=== PATIENT | female | born 1960 | race Caucasian/White ===

== ENCOUNTER 2021-11-01 10:25 | Emergency (ER) | payer BC, SELFPAY ==
--- NOTE | ~2021-11-01 | XR_ITS ---
EXAMINATION: XR HIP, RIGHT CLINICAL INFORMATION: Right hip pain status post fall. COMPARISON: None TECHNIQUE: Two views of the right hip. FINDINGS: There is no acute fracture or dislocation. Minimal right hip degenerative joint changes are seen superiorly. The bony pelvis is intact. The soft tissues are unremarkable. XR/XR hip RT w PEL1V IMPRESSION: Minimal right hip degenerative joint changes without acute fracture.
--- NOTE | ~2021-11-01 | XR_ITS ---
EXAMINATION: XR CHEST CLINICAL INFORMATION: Week old left shoulder surgery. COMPARISON: None TECHNIQUE: 2 views of the chest were obtained. FINDINGS: No significant abnormality is noted involving the heart, lungs, mediastinum, bony thorax or soft tissues. XR/XR chest 2V IMPRESSION: No acute cardiopulmonary process.
--- NOTE | ~2021-11-01 | CT_ITS ---
EXAMINATION: CT HEAD WITHOUT CONTRAST CLINICAL INFORMATION: Multiple falls over the past 3 days. The labrum. COMPARISON: None TECHNIQUE: Contiguous axial imaging was performed from the skull base to vertex without intravenous administration of contrast. Coronal and sagittal reformatted images were obtained. This CT examination was performed using dose optimization techniques as appropriate, variously including the following: *Automated exposure control *Adjustment of mA and/or kV according to patient size (this includes techniques or standardized protocols for targeted exams where dose is matched to indication/reason for exam; i.e. extremities or head) *Use of iterative reconstruction technique DLP: 612 mGy-cm FINDINGS: There is no evidence of acute intracranial hemorrhage or territorial infarction. No abnormal mass effect or midline shift is seen. Caro to white matter differentiation is well preserved. No extra-axial fluid collections are identified. The ventricles are normal in size. There is no abnormal attenuation within the brain parenchyma. The osseous structures and soft tissues are normal. The mastoid air cells and visualized portions of the paranasal sinuses are well aerated. Mild anterior nasal septal deviation, apex of the right is seen. CT/CT head/brain wo con IMPRESSION: No acute intracranial pathology.
[2021-11-01 10:35] VITALS: BP 165/46; PULSE 81; RESP 20; TEMP 37; O2SAT 97; BMI 34.3
[2021-11-01 14:43] VITALS: BP 152/57; PULSE 76; RESP 16; TEMP 36.8; O2SAT 95
--- NOTE | 2021-11-01 14:47 | ED_ITS ---
HPI - General Adult General Chief complaint: General Medical Stated complaint: Fall t-1/ R side pain Time Seen by Provider: 11/01/21 14:46 Source: patient and family () Mode of arrival: ambulatory Limitations: no limitations History of Present Illness HPI narrative: Patient is a 61 year old female presenting to the emergency department today with right hip and and right rib pain. Patient states that she fell yesterday and landed on her right hip and right ribs. Patient denies hitting her head with the incident. Patient's states that the patient is falling more frequently at home because she is drinking an excessive amount of alcohol. Patient's said that they have attempted to talk to the patient about her drinking problem but haven't made any progress. Patient denies any dizziness, lightheadedness, abdominal pain, nausea, vomiting, fever, chills, blurry vision, double vision, loss of vision, chest pain, difficulty breathing, shortness of breath, back pain, night sweats, pain with urination, increased urinary frequency, increased urinary urgency, blood in her urine or stool, syncope or a near syncopal episode, recent trauma or falls, bowel incontinence, bladder in continence, bowel retention, bladder retention, or any other complaints at this time. Patient states that a week and a half ago she fell and broke her left humerus and is currently in a sling, with a follow up orthopedic appointment scheduled. Onset (ago): day(s) Radiation: non-radiation Severity: mild Severity scale (1-10): 3 Quality: dull Pain Consistency: constant Relieving factors: none Exacerbating factors: none Associated symptoms: denies other symptoms Treatments prior to arrival: none Related Data Allergies Allergy/AdvReac Type Severity Reaction Status Date / Time Sulfa (Sulfonamide Allergy Rash Verified 11/01/21 10:39 Antibiotics) Review of Systems Constitutional: Constitutional: Reports no additional constitutional complaints, Denies chills, Denies fever(s) and Denies night sweats Eyes: Eyes: Reports no additional eye complaints, Denies blurry vision, Denies change in vision, Denies diplopia, Denies eye discharge, Denies loss of vision and Denies eye pain ENT: Denies dizziness Cardiovascular: Cardiovascular: Reports no additional cardiovascular complaints, Denies chest pain, Denies lightheadedness, Denies Loss of Consciou sness and Denies dyspnea Respiratory: Respiratory: Reports no additional respiratory complaints and Denies dyspnea Gastrointestinal: Gastrointestinal: Reports no additional gastrointestinal co mplaints, Denies abdominal pain, Denies melena, Denies hematochezia, Denies change in bowel habits and Denies change in stool character Genitourinary: Genitourinary: Denies hematuria, Denies urinary frequency, Denies dysuria, Denies urinary incontinence, Denies urinary hesitancy and Denies urinary urgency Musculoskeletal: Musculoskeletal: Reports no additional musculoskeletal complaints, Denies numbness and Denies tingling Comments: right hip pain, right rib cage pain, left humerus pain Neurologic: Denies dizziness, Denies loss of vision, Denies numbness and Denies tingling Psychiatric: Psychiatric: Reports no additional psychiatric complaints Endocrine: Endocrine: Reports no additional endocrine complaints Hematologic/Lymphatic: Hematologic/Lymphatic: Reports no additional hematologic/lymphatic complaints Allergic/Immunologic: Allergic/Immunologic: Reports no additional allergic/imm unologic complaints PMFSH Past Medical History Attestation statement: The following information was validated with the patient. Source: old records reviewed Social History Social History Alcohol intake: current Alcohol intake frequency: 0-2 drinks per day Use of substances other than those prescribed or required for medical reasons: No Advance Directives: No Physical Exam ED Vital Signs: Vital Signs - 24 hr 11/01/21 10:35 11/01/21 14:43 11/01/21 15:31 Temperature 98.6 F 98.2 F 98.7 F Pulse Rate 81 76 75 Respiratory Rate 20 16 16 Blood Pressure 165/46 H 152/57 H 149/70 H Pulse Oximetry 97 95 98 BMI result Body Mass Index 34.3 Const General: cooperative, no acute distress, alert and awake Nutritional Appearance: well nourished Orientation/consciousness: patient oriented x3 Limitations: no limitations HENMT Head: Yes normal to inspection and Yes atraumatic Ears: hearing grossly normal bilaterally and external ears normal General nose exam: Normal external nose present, no nasal discharge noted and no epistaxis Face and sinus: Yes normal facial exam, No abrasion and No laceration Mouth: Normal oral and palatal mucosa present, no drooling and no muffled voice Eyes General: appearance normal, both eyes and all related structures Periorbital: periorbital findings normal Eyelids: Yes eyelids normal Conjunctivae: conjunctivae normal Pupils: Equal, round and reactive pupils present EOM: EOMs intact bilaterally Neck Neck: Yes normal visual inspection, Yes full ROM and Yes no lymphadenopathy Chest Chest palpation & inspection: normal inspection of the chest Resp Effort & Inspection: normal respiratory effort and able to speak in complete sentences Auscultation: clear to auscultation bilaterally Cardio Rate: regular rate Rhythm: regular rhythm GI Inspection: Yes normal to inspection Skin Other: mild bruising to the right hip and left upper arm Neuro General: patient oriented x3 and moves all extremities Cranial nerves: Yes Equal, round and reactive pupils present Cognition (Neuro): normal cognition Motor exam (neuro): 5/5 motor strength present throughout Sensory Exam: Normal double simultaneous stimulation for sensation Coordination: [id number] test normal Extrem General: Yes normal to inspection, Yes full ROM and Yes capillary refill normal Psych Appearance: grossly normal Mental Status: mental status grossly normal Affect: normal affect Attitude: cooperative Thought process: Normal thought process present Thought content: Normal thought content present Insight: Good insight present (Psych) Medical Decision Making [facility] Narrative Medical decision making narrative: Patient is a 61 year old female presenting to the emergency department today after a fall. Patient's physical exam showed minimal bruising to the right hip and left humerus. Patient's left arm is in a sling. Patient's blood work was unremarkable. Patient's right hip and chest x-ray showed no acute process. Courtney osuna's head CT showed no acute process. I explained my physical exam findings as well as all test results to the patient and the patient's . I answered all questions asked by the patient and the patient's . Patient received IV toradol which she stated helped her pain significantly. I stressed the importance of the patient taking her medication as prescribed. I stressed the importance of the patient following up with her primary care provider and orthopedist. I stressed the importance of the patient returning to the emergency department immediately if her symptoms were to worsen or if she were to develop any dizziness, shortness of breath, difficulty breathing, chest pain, blurry vision, loss of vision, nausea, vomiting, abdominal pain, fever, chills, back pain, or any other complaints. Patient and the patient's verbalized agreement and understanding with this treatment plan and discharge. Patient was given alcohol abuse resources. Differential Diagnosis Differential Diagnosis: alcohol abuse, fall, hip pain, broken humerus Medical Records Medical records reviewed: Yes I reviewed the patient's medical records. Lab Data Lab results reviewed: Yes I reviewed the patient's lab results. Result diagrams: 11/01/21 15:19 11/01/21 15:19 Labs: Lab Results 11/01/21 11/01/21 11/01/21 Range/Units 15:18 15:18 15:19 WBC 8.3 (4.8-10.8) X10*3/uL RBC 3.31 L (4.20-5.50) X10*6/uL Hgb 8.4 L (12.0-16.0) g/dl Hct 26.7 L (37.0-47.0) % MCV 80.7 (80.0-98.0) fL MCH 25.4 L (27.0-33.0) pg MCHC 31.5 (31.0-35.0) g/dl RDW 17.6 H (11.0-16.0) % Plt Count 134 L (160-400) X10*3/uL MPV 9.9 (9.4-12.3) fL Immature Gran % (Auto) 0.4 (0.0-0.4) % Neut % (Auto) 68.8 (45-73) % Lymph % (Auto) 22.7 (20-40) % Hooker % (Auto) 7.7 (2-11) % Eos % (Auto) 0.0 (0-4) % Baso % (Auto) 0.4 (0-2) % Lymph # (Auto) 1.9 (1.2-4.9) X10*3/uL Hooker # (Auto) 0.6 (0.1-1.2) X10*3/uL Eos # (Auto) 0.0 (0.0-0.4) X10*3/uL Baso # (Auto) 0.0 (0.0-0.2) X10*3/uL Abs Immat Gran (auto) 0.03 (0.00-0.03) X10*3/uL Absolute Neuts (auto) 5.8 (2.0-8.3) x10*3/uL Absolute Nucleated RBC 0.000 (0.0-0.012) X10*3/uL Nucleated RBC % (auto) 0.0 (0.0-0.2) /100WBC VBG pH (7.32-7.43) VBG pCO2 mmHg VBG pO2 mmHg VBG HCO3 (22-26) mmol/L VBG O2 Saturation % VBG Base Excess mmol/L Sodium (135-145) mmol/L Potassium (3.3-5.1) mmol/L Chloride (96-108) mmol/L Carbon Dioxide (22-29) mmol/L Anion Gap (12-20) BUN (9-16) mg/dL Creatinine (0.5-1.4) mg/dL Estim Creat Clear Calc Estimated GFR Random Glucose (60-115) mg/dL Calcium (8.4-10.2) mg/dL Total Bilirubin (0.0-1.0) mg/dL AST (5-31) U/L ALT (0-31) U/L Alkaline Phosphatase (39-117) U/L Ammonia 36 (13-55) umol/L Total Protein (6.5-8.0) g/dL Albumin (3.5-5.0) g/dL TSH (0.32-4.0) uIU/mL Free T4 (0.71-1.85) ng/dL Urine Opiates Screen (Not Detect) Urine Fentanyl Screen (Not Detect) Ur Barbiturates Screen (Not Detect) Ur Phencyclidine Scrn (Not Detect) Ur Amphetamines Screen (Not Detect) U Benzodiazepines Scrn (Not Detect) Urine Cocaine Screen (Not Detect) U Marijuana (THC) Screen (Not Detect) Ethyl Alcohol < 10 mg/dL 11/01/21 11/01/21 11/01/21 Range/Units 15:19 15:19 15:27 WBC (4.8-10.8) X10*3/uL RBC (4.20-5.50) X10*6/uL Hgb (12.0-16.0) g/dl Hct (37.0-47.0) % MCV (80.0-98.0) fL MCH (27.0-33.0) pg MCHC (31.0-35.0) g/dl RDW (11.0-16.0) % Plt Count (160-400) X10*3/uL MPV (9.4-12.3) fL Immature Gran % (Auto) (0.0-0.4) % Neut % (Auto) (45-73) % Lymph % (Auto) (20-40) % Hooker % (Auto) (2-11) % Eos % (Auto) (0-4) % Baso % (Auto) (0-2) % Lymph # (Auto) (1.2-4.9) X10*3/uL Hooker # (Auto) (0.1-1.2) X10*3/uL Eos # (Auto) (0.0-0.4) X10*3/uL Baso # (Auto) (0.0-0.2) X10*3/uL Abs Immat Gran (auto) (0.00-0.03) X10*3/uL Absolute Neuts (auto) (2.0-8.3) x10*3/uL Absolute Nucleated RBC (0.0-0.012) X10*3/uL Nucleated RBC % (auto) (0.0-0.2) /100WBC VBG pH 7.46 H (7.32-7.43) VBG pCO2 34 mmHg VBG pO2 87 mmHg VBG HCO3 25 (22-26) mmol/L VBG O2 Saturation 96.0 % VBG Base Excess 1.7 mmol/L Sodium 139 (135-145) mmol/L Potassium 4.2 (3.3-5.1) mmol/L Chloride 104 (96-108) mmol/L Carbon Dioxide 24 (22-29) mmol/L Anion Gap 15 (12-20) BUN 14 (9-16) mg/dL Creatinine 0.73 (0.5-1.4) mg/dL Estim Creat Clear Calc 89.3 Estimated GFR > 60 Random Glucose 177 H (60-115) mg/dL Calcium 9.1 (8.4-10.2) mg/dL Total Bilirubin 1.1 H (0.0-1.0) mg/dL AST 76 H (5-31) U/L ALT 39 H (0-31) U/L Alkaline Phosphatase 126 H (39-117) U/L Ammonia (13-55) umol/L Total Protein 7.3 (6.5-8.0) g/dL Albumin 3.8 (3.5-5.0) g/dL TSH 8.67 H (0.32-4.0) uIU/mL Free T4 1.05 (0.71-1.85) ng/dL Urine Opiates Screen (Not Detect) Urine Fentanyl Screen (Not Detect) Ur Barbiturates Screen (Not Detect) Ur Phencyclidine Scrn (Not Detect) Ur Amphetamines Screen (Not Detect) U Benzodiazepines Scrn (Not Detect) Urine Cocaine Screen (Not Detect) U Marijuana (THC) Screen (Not Detect) Ethyl Alcohol mg/dL 11/01/21 Range/Units 16:54 WBC (4.8-10.8) X10*3/uL RBC (4.20-5.50) X10*6/uL Hgb (12.0-16.0) g/dl Hct (37.0-47.0) % MCV (80.0-98.0) fL MCH (27.0-33.0) pg MCHC (31.0-35.0) g/dl RDW (11.0-16.0) % Plt Count (160-400) X10*3/uL MPV (9.4-12.3) fL Immature Gran % (Auto) (0.0-0.4) % Neut % (Auto) (45-73) % Lymph % (Auto) (20-40) % Hooker % (Auto) (2-11) % Eos % (Auto) (0-4) % Baso % (Auto) (0-2) % Lymph # (Auto) (1.2-4.9) X10*3/uL Hooker # (Auto) (0.1-1.2) X10*3/uL Eos # (Auto) (0.0-0.4) X10*3/uL Baso # (Auto) (0.0-0.2) X10*3/uL Abs Immat Gran (auto) (0.00-0.03) X10*3/uL Absolute Neuts (auto) (2.0-8.3) x10*3/uL Absolute Nucleated RBC (0.0-0.012) X10*3/uL Nucleated RBC % (auto) (0.0-0.2) /100WBC VBG pH (7.32-7.43) VBG pCO2 mmHg VBG pO2 mmHg VBG HCO3 (22-26) mmol/L VBG O2 Saturation % VBG Base Excess mmol/L Sodium (135-145) mmol/L Potassium (3.3-5.1) mmol/L Chloride (96-108) mmol/L Carbon Dioxide (22-29) mmol/L Anion Gap (12-20) BUN (9-16) mg/dL Creatinine (0.5-1.4) mg/dL Estim Creat Clear Calc Estimated GFR Random Glucose (60-115) mg/dL Calcium (8.4-10.2) mg/dL Total Bilirubin (0.0-1.0) mg/dL AST (5-31) U/L ALT (0-31) U/L Alkaline Phosphatase (39-117) U/L Ammonia (13-55) umol/L Total Protein (6.5-8.0) g/dL Albumin (3.5-5.0) g/dL TSH (0.32-4.0) uIU/mL Free T4 (0.71-1.85) ng/dL Urine Opiates Screen Not Detected (Not Detect) Urine Fentanyl Screen Not Detected (Not Detect) Ur Barbiturates Screen Not Detected (Not Detect) Ur Phencyclidine Scrn Not Detected (Not Detect) Ur Amphetamines Screen Not Detected (Not Detect) U Benzodiazepines Scrn Not Detected (Not Detect) Urine Cocaine Screen Not Detected (Not Detect) U Marijuana (THC) Screen POSITIVE H (Not Detect) Ethyl Alcohol mg/dL Imaging Data Right hip pain: Attestation: I personally reviewed and interpreted this imaging study as follows: My impression: No acute process. Radiologist's impression: EXAMINATION: XR HIP, RIGHT CLINICAL INFORMATION: Right hip pain status post fall. COMPARISON: None TECHNIQUE: Two views of the right hip. FINDINGS: There is no acute fracture or dislocation. Minimal right hip degenerative joint changes are seen superiorly. The bony pelvis is intact. The soft tissues are unremarkable.? XR/XR hip RT w PEL1V IMPRESSION: Minimal right hip degenerative joint changes without acute fracture. Dictated By: Saad Cottrell MD Signed By: Electronically signed by Saad Cottrell MD 11/01/21 6871 Chest x-ray: Attestation: I personally reviewed and interpreted this imaging study as follows: My impression: No acute process. Radiologist's impression: EXAMINATION: XR CHEST CLINICAL INFORMATION: Week old left shoulder surgery. COMPARISON: None TECHNIQUE: 2 views of the chest were obtained. FINDINGS: No significant abnormality is noted involving the heart, lungs, mediastinum, bony thorax or soft tissues. XR/XR chest 2V IMPRESSION: No acute cardiopulmonary process. Dictated By: Saad Cottrell MD Signed By: Electronically signed by Saad Cottrell MD 11/01/[address] scan - head: Attestation: I personally reviewed and interpreted this imaging study as follows: My impression: No acute process. Radiologist's impression: EXAMINATION: CT HEAD WITHOUT CONTRAST CLINICAL INFORMATION: Multiple falls over the past 3 days. The labrum. COMPARISON: None TECHNIQUE: Contiguous axial imaging was performed from the skull base to vertex without intravenous administration of contrast. Coronal and sagittal reformatted images were obtained. This CT examination was performed using dose optimization techniques as appropriate, variously including the following: *Automated exposure control *Adjustment of mA and/or kV according to patient size (this includes techniques or standardized protocols for targeted exams where dose is matched to indication/reason for exam; i.e. extremities or head) *Use of iterative reconstruction technique DLP: 612 mGy-cm FINDINGS: There is no evidence of acute intracranial hemorrhage or territorial infarction. No abnormal mass effect or midline shift is seen. Caro to white matter differentiation is well preserved. No extra-axial fluid collections are identified. The ventricles are normal in size. There is no abnormal attenuation within the brain parenchyma. The osseous structures and soft tissues are normal. The mastoid air cells and visualized portions of the paranasal sinuses are well aerated. Mild anterior nasal septal deviation, apex of the right is seen. ? CT/CT head/brain wo con IMPRESSION: No acute intracranial pathology. Dictated By: Saad Cottrell MD Signed By: Electronically signed by Saad Cottrell MD 11/01/21 6687 Discharge Plan Discharge Clinical Impression: Fall, Fracture, humerus, Alcohol abuse Patient Disposition: Home, Self-Care Instructions: Abuse of Alcohol (ED), Fall Prevention (ED) Additional Instructions: Follow up with your primary care provider and orthopedist. Return to the emergency department immediately if your symptoms worsen or if you develop any dizziness, shortness of breath, difficulty breathing, chest pain, blurry vision, loss of vision, nausea, vomiting, abdominal pain, fever, chills, back pain, or any other complaints. Print Language: Iraqi
[2021-11-01 15:29] LABS: MANUAL DIFF FLAG NO
[2021-11-01 15:31] VITALS: BP 149/70; PULSE 75; RESP 16; TEMP 37.1; O2SAT 98
[2021-11-01 15:32] LABS: VBG Base Excess 1.7 mmol/L; VBG HCO3 25 mmol/L (22-26); VBG pCO2 34 mmHg; VBG pH 7.46 (7.32-7.43); VBG pO2 87 mmHg
[2021-11-01 15:34] LABS: Basophils Percent Auto 0.4 % (0-2); Hematocrit 26.7 % (37.0-47.0); Hemoglobin 8.4 g/dl (12.0-16.0); Imm Gran Abs Auto 0.03 X10*3/uL (0.00-0.03); Imm Gran Pct Auto 0.4 % (0.0-0.4); Lymphocytes Absolute Auto 1.9 X10*3/uL (1.2-4.9); Lymphocytes Percent Auto 22.7 % (20-40); Mean Corpuscular HGB Conc 31.5 g/dl (31.0-35.0); Mean Corpuscular Hemoglobin 25.4 pg (27.0-33.0); Mean Corpuscular Volume 80.7 fL (80.0-98.0); Mean Platelet Volume 9.9 fL (9.4-12.3); Monocytes Absolute Auto 0.6 X10*3/uL (0.1-1.2); Monocytes Percent Auto 7.7 % (2-11); Neutrophils Absolute Auto 5.8 x10*3/uL (2.0-8.3); Neutrophils Percent Auto 68.8 % (45-73); Platelet Count 134 X10*3/uL (160-400); Red Blood Count 3.31 X10*6/uL (4.20-5.50); Red Cell Distribution Width 17.6 % (11.0-16.0); White Blood Count 8.3 X10*3/uL (4.8-10.8)
[2021-11-01 15:39] LABS: Venous Blood Gas Refer to POC result
[2021-11-01 15:42] LABS: Ammonia 36 umol/L (13-55)
[2021-11-01 15:44] LABS: Ethanol < 10 mg/dL
[2021-11-01 15:48] LABS: Alanine Aminotransferase 39 U/L (0-31); Albumin Level 3.8 g/dL (3.5-5.0); Alkaline Phosphatase 126 U/L (39-117); Anion Gap 15 (12-20); Aspartate Amino Transferase 76 U/L (5-31); Bilirubin Total 1.1 mg/dL (0.0-1.0); Blood Urea Nitrogen 14 mg/dL (9-16); Calcium 9.1 mg/dL (8.4-10.2); Carbon Dioxide 24 mmol/L (22-29); Chloride 104 mmol/L (96-108); Creatinine Clr Calc Pharmacy 89.3; Estimated Glomerular Filt Rate > 60; Glucose Random 177 mg/dL (60-115); Potassium 4.2 mmol/L (3.3-5.1); Sodium 139 mmol/L (135-145); Total Protein 7.3 g/dL (6.5-8.0)
[2021-11-01] MEDS: Ketorolac Tromethamine 30 MG/ML VIAL IVPUSH (16:02)
[2021-11-01 16:28] LABS: TSH reflex Free T4 8.67 uIU/mL (0.32-4.0)
[2021-11-01 17:09] LABS: Free T4 (Free Thyroxine) 1.05 ng/dL (0.71-1.85)
[2021-11-01 17:11] LABS: Appearance Urine CLEAR; Color Urine YELLOW; Glucose Urine UA >=1000 MG/DL (NEG); Leukocyte Esterase Urine 1+ (NEG); Nitrite Urine POS (NEG); UACC Culture Trigger YES; Urine Blood NEG (NEG); Urine Ketones NEG (NEG); Urine Protein NEG (NEG-TRACE)
[2021-11-01 17:15] LABS: Amphetamine Screen Urine Not Detected (Not Detect); Barbiturates, Urine Not Detected (Not Detect); Benzodiazepines Screen Urine Not Detected (Not Detect); Cannabinoid Screen Urine POSITIVE (Not Detect); Cocaine Screen Urine Not Detected (Not Detect); Fentanyl, urine Not Detected (Not Detect); Opiate Screen Urine Not Detected (Not Detect); Phencyclidine Screen Urine Not Detected (Not Detect)
--- NOTE | 2021-11-01 17:15 | MHC.RECOVSUP ---
Recovery Support note: Patient is a 61 year old Chadian speaking female who presented to [facility] ED due to multiple falls. This contract technical writer met with patient and her at ED provider request to discuss alcohol use and recovery supports. Patient acknowledges that alcohol contributed to her falls and that her alcohol use is problematic to her health. Patient reports drinking at least two drinks a day and reports she has consumed about 3 pints of gin over the last 10 days or so. Patient reports no withdrawal symptoms and reports she doesn't get withdrawal symptoms. Education on withdrawal symptoms provided. This contract technical writer discussed with patient and her recovery supports including AA, al-anon, outpatient therapy, recovery coaching, medications for alcohol use disorder and IOP. Information and resources provided regarding these. Patient also provided with contact information for the Recovery Team in the event that there are any questions after discharge.
[2021-11-01 17:38] LABS: Bacteria Urine 3+ /LPF; RBC Urine 0 /HPF (0); Squamous Epithelial Cell Urine 1+ /LPF
== END 2021-11-01 18:18 | disposition home or self-care (01) ==
PROVIDERS: Physician Assistant Medical; Emergency Provider Internal Medicine
DX: S42.302A Unspecified fracture of shaft of humerus, left arm, initial encounter for closed fracture (principal); F10.10 Alcohol abuse, uncomplicated; Y90.0 Blood alcohol level of less than 20 mg/100 ml; M25.551 Pain in right hip; R07.81 Pleurodynia; R29.6 Repeated falls; W19.XXXA Unspecified fall, initial encounter; Y93.9 Activity, unspecified; Y92.9 Unspecified place or not applicable; Y99.9 Unspecified external cause status
CPT/HCPCS: 36415; 70450; 71046; 73502; 80053; 80307; 81001; 81003; 82077; 82140; 82803; 84439; 84443; 85025; 87086; 87088; 87186; 96374; 99284; J1885

== ENCOUNTER 2021-11-15 07:07 | Outpatient (REF) | payer BC, SELFPAY ==
--- NOTE | ~2021-11-15 | XR_ITS ---
EXAMINATION: XR SHOULDER, LEFT CLINICAL INFORMATION: Pain. COMPARISON: None TECHNIQUE: AP external rotation, Grashey, scapular Y, and axillary views of the left shoulder. FINDINGS: There is a solitary screw traversing the left humeral head with a vertical comminuted fracture left greater tuberosity with mild displacement. Glenohumeral joint space is normal. There is mild loss of left AC joint space. The soft tissues are normal. No gross bony abnormality seen.. XR/XR shoulder LT min 2V IMPRESSION: There is a comminuted left greater tuberosity fracture with mild displacement. There is a solitary screw traversing the left lateral humeral head. The soft tissues are normal.
== END 2021-11-15 07:08 | disposition home or self-care (01) ==
LOC: HO.HOSX 07:07
PROVIDERS: Visit Provider Physician Assistant
DX: M25.512 Pain in left shoulder (principal); S42.252A Displaced fracture of greater tuberosity of left humerus, initial encounter for closed fracture; W10.9XXA Fall (on) (from) unspecified stairs and steps, initial encounter; Y93.01 Activity, walking, marching and hiking; Y92.9 Unspecified place or not applicable; Y99.8 Other external cause status
CPT/HCPCS: 73030

== ENCOUNTER 2021-12-06 07:30 | Outpatient (REF) | payer BC, SELFPAY ==
--- NOTE | ~2021-12-06 | XR_ITS ---
EXAMINATION: XR SHOULDER, LEFT CLINICAL INFORMATION: Follow-up fracture COMPARISON: Previous x-ray November 2021 TECHNIQUE: Two views of the left shoulder. FINDINGS: There is a comminuted minimally displaced fracture of the left humeral neck and greater tuberosity. This appears unchanged from recent exam. There is a screw in the humeral head. Bones are osteopenic. Glenohumeral joint is normal. There is arthritis at the acromioclavicular joint. Soft tissues are unremarkable. XR/XR shoulder LT min 2V IMPRESSION: No change in the comminuted minimally displaced fracture of the left proximal humerus.
== END 2021-12-06 07:31 | disposition home or self-care (01) ==
LOC: HO.HOSX 07:30
PROVIDERS: Visit Provider Physician Assistant
DX: M25.512 Pain in left shoulder (principal)
CPT/HCPCS: 73030

== ENCOUNTER 2022-01-17 07:27 | Outpatient (REF) | payer BC, SELFPAY | END 2022-01-17 07:28 | disposition home or self-care (01) | LOC: HO.HOSX 07:27 | PROVIDERS: Visit Provider Physician Assistant | DX: Z13.89 Encounter for screening for other disorder (principal) ==

== ENCOUNTER 2022-09-20 09:12 | Emergency (ER) | payer OTHER, SELFPAY ==
--- NOTE | ~2022-09-20 | XR_ITS ---
EXAMINATION: XR chest 2V CLINICAL INFORMATION: Reason for Exam cough COMPARISON: No prior chest x-ray available in our system for comparison at the time of this dictation. TECHNIQUE: XR chest 2V Lungs and Marlyn: Mild diffuse peribronchial cuffing could be sequela of small airway disease such as bronchitis, there is patchy opacity projecting over the left middle lung zone, could be focal patchy infiltrate, atelectasis versus lung nodule. Pleura: Normal. Costophrenic angles are sharp. No pneumothorax. Heart: The heart is normal in size. Mediastinum: The mediastinum is within normal limits.. Bones: Skeletal structures included are normal for patient's age. XR/XR chest 2V IMPRESSION: * Patchy opacity projecting over the left middle lung zone could be focal patchy infiltrate, atelectasis versus lung nodule. Attention to follow-up chest x-ray one month after completion of treatment recommended to ensure complete clearance, if persist then may require further investigation with CT scan. * Mild diffuse peribronchial cuffing might be small airway disease such as bronchitis. * No pleural effusion. * Follow-up recommended to ensure complete clearance and exclude underlying pathology.
[2022-09-20 09:21] VITALS: BP 159/64; PULSE 78; RESP 16; TEMP 36.3; O2SAT 97; BMI 36.6
--- NOTE | 2022-09-20 09:36 | ED.URI ---
HPI - URI/Sore Throat General Chief Complaint: Upper Respiratory Symptoms Stated Complaint: sinus infection? Time Seen by Provider: 09/20/22 09:19 Source: patient and RN notes reviewed Mode of arrival: ambulatory Limitations: no limitations History of Present Illness HPI Narrative: This is a 61-year-old female, with a past medical history of diabetes, hyperlipidemia, hypothyroidism, and asthma, who presents emergency department with complaints of sinus pressure and cough x3 weeks. Patient reports that 3 weeks ago she developed a runny nose. she reports that over this last week she had developed a productive cough with green sputum, shortness of breath which only occurs with coughing, sinus pressure and pain, and intermittent fevers. Max temp a 100.7?. She reports that her sinus pain radiates into her left upper tooth into her bilateral ears she has been taking NyQuil and DayQuil for her symptoms which has provided her with some relief. She has not been checking her sugars at home. denies any abdominal pain, nausea, vomiting, or diarrhea. No other complaints or concerns time. MD elicited complaint: fever, cough and sore throat Onset (ago): week(s) Consistency: constant and progressively worsening Severity: moderate Description of mucous: green Able to tolerate fluids by mouth: Yes Exacerbating factors: deep breaths and leaning forward Relieving factors: OTC cold medicine Context: recent travel Associated symptoms: denies other symptoms Treatments prior to arrival: none Related Data Home Medications Medication Instructions Recorded Confirmed aspirin 81 mg tablet,delayed 81 mg PO DAILY 11/15/21 release (Adult Low Dose Aspirin) canagliflozin 300 mg tablet 300 mg PO DAILY 11/15/21 (Invokana) fluoxetine 20 mg capsule (Prozac) 20 mg PO DAILY 11/15/21 insulin degludec 100 unit/mL (3 100 unit subcut DAILY 11/15/21 mL) subcutaneous pen (Tresiba FlexTouch U-100 insulin) levothyroxine 200 mcg capsule 200 mcg PO DAILY 11/15/21 metformin 500 mg tablet 2,000 mg PO DAILY 11/15/21 multivitamin 1 tab PO DAILY 11/15/21 Previous Rx's Medication Instructions Recorded nitrofurantoin 100 mg PO BID 7 days #14 caps 11/06/21 monohydrate/macrocrystals 100 mg capsule (Macrobid) amoxicillin 875 mg-potassium 1 tab PO BID #14 tabs 09/20/22 clavulanate 125 mg tablet Allergies Allergy/AdvReac Type Severity Reaction Status Date / Time Sulfa (Sulfonamide Allergy Rash Verified 11/01/21 10:39 Antibiotics) Review of Systems Review of Systems: Yes all other systems are reviewed and are negative [facility] Past Medical History Medical History Depression Diabetes Hypothyroid Surgical History S/P rotator cuff repair Social History Social History Alcohol intake: current Alcohol intake frequency: 0-2 drinks per day Patient Tobacco Use Status: Former Tobacco user Advance Directives: No Advance Directives Information Provided: Yes Current occupational status: unemployed Current occupation: rt hand Physical Exam Vital Signs: Vital Signs: Last Vital Signs Temp 97.3 F 09/20/22 09:21 Pulse 78 09/20/22 11:56 Resp 14 09/20/22 11:56 BP 144/52 H 09/20/22 11:56 Pulse Ox 94 09/20/22 11:56 O2 Del Method Room Air 09/20/22 11:56 BMI result Body Mass Index 36.6 General: Awake, alert, and oriented X3. No acute distress. HEENT: Normal inspection, Oropharynx is non erythematous, no tonsillar hypertrophy. Postnasal drip noted at the posterior pharynx. Uvula is midline. Bilateral TMs are nonerythematous, nonbulging. tenderness to palpation all along the maxillary sinuses. No frontal or ethmoid sinus tenderness. no cervical lymphadenopathy. Good dentition, no obvious dental decay. CVS: Normal heart rate and rhythm. Pulses normal. S1-S2 regular, no murmurs rubs or gallops. Respiratory: No respiratory distress, Good air movement throughout all lung epstein, coarse lung sounds at the left lower base, cleared with cough. Skin: Warm, dry, no rashes noted to exposed skin. Normal skin color. Normal skin turgor. Extremities: Normal inspection Neuro: Oriented X 3. No motor deficit. No sensory deficit. Course Reevaluation(s) Reevaluation #1: Blood glucose 413 on POC today. Patient medicated with humalog 10 units, 1L IV fluids, basic labs ordered. Xray revealed a patchy opacity over the left middle lung zone, could be a patchy infiltrate, atelectasis vs lung nodule. Diffuse peribronchial cuffing might be small airway disease such as bronchitis. Discussed this with patient and to have repeat chest x-ray in 1 month to ensure resolution. Chemistry pending. Time: 11:22 Reevaluation #2: Chemistry returns, glucose 434. blood drawn prior to administering insulin and liter of fluids. Repeat POC 359. H&H low at 7.6/27.4. Reports no recent bloody or black stool. Discussed with patient to follow up with her primary care physician regarding chest x-ray and low H&H. Patient understands and agrees with plan. Patient stable for discharge. Time: 12:37 Medications Administered Discontinued Medications Generic Name Dose Route Start Last Admin Trade Name Freq PRN Reason Stop Dose Admin Sodium Chloride 1,000 mls @ 999 mls/hr 09/20/22 10:40 09/20/22 12:40 Ns IVCONT 09/20/22 11:40 Infused .Q1H1M ONE Infusion Insulin Human Lispro 10 unit 09/20/22 10:35 09/20/22 11:13 Insulin Lispro 100 Unit/Ml 3 Ml Vial SUBCUT 09/20/22 10:36 10 unit ONCE ONE Administration Medical Decision Making Medical Decision Making MDM Narrative: 61-year-old female, with a past medical history of diabetes, hyperlipidemia, hypothyroidism, asthma, who presents for evaluation of sinus pressure and cough. Symptoms started 3 weeks ago and have worsened this past week. on examination patient has maxillary sinus tenderness to palpation, with good air movement throughout all lung epstein, with coarse lung sounds at the left lower base, clear with cough. Vital Signs mildly hypertensive at 159/64, all other vital signs within normal limits. Plan: viral swabs, chest x-ray, point of care glucose Differential Diagnosis Differential Diagnoses: The differential diagnosis associated with the presentation includes pneumonia, upper respiratory infection, acute sinusitis, viral syndrome Lab Data MDM Lab Attestation statement: I reviewed the patient's lab results. 09/20/22 11:04 09/20/22 11:04 Labs: Lab Results 09/20/22 09/20/22 09/20/22 Range/Units 09:39 10:34 11:04 WBC 6.5 (4.8-10.8) X10*3/uL RBC 4.03 L D (4.20-5.50) X10*6/uL Hgb 7.6 L (12.0-16.0) g/dl Hct 27.4 L (37.0-47.0) % MCV 68.0 L (80.0-98.0) fL MCH 18.9 L (27.0-33.0) pg MCHC 27.7 L (31.0-35.0) g/dl RDW 18.9 H (11.0-16.0) % Plt Count 109 L (160-400) X10*3/uL MPV 10.3 (9.4-12.3) fL Immature Gran % (Auto) 0.3 (0.0-0.4) % Neut % (Auto) 64.5 (45-73) % Lymph % (Auto) 26.5 (20-40) % [place] % (Auto) 7.9 (2-11) % Eos % (Auto) 0.3 (0-4) % Baso % (Auto) 0.5 (0-2) % Lymph # (Auto) 1.7 (1.2-4.9) X10*3/uL [place] # (Auto) 0.5 (0.1-1.2) X10*3/uL Eos # (Auto) 0.0 (0.0-0.4) X10*3/uL Baso # (Auto) 0.0 (0.0-0.2) X10*3/uL Abs Immat Gran (auto) 0.02 (0.00-0.03) X10*3/uL Absolute Neuts (auto) 4.2 (2.0-8.3) x10*3/uL Absolute Nucleated RBC 0.000 (0.0-0.012) X10*3/uL Nucleated RBC % (auto) 0.0 (0.0-0.2) /100WBC Sodium (135-145) mmol/L Potassium (3.3-5.1) mmol/L Chloride (96-108) mmol/L Carbon Dioxide (22-29) mmol/L Anion Gap (12-20) BUN (9-16) mg/dL Creatinine (0.5-1.4) mg/dL Estim Creat Clear Calc Estimated GFR POC Glucose 413 H* (60-115) mg/dL Random Glucose (60-115) mg/dL Calcium (8.4-10.2) mg/dL Magnesium (1.6-2.6) mg/dL Total Bilirubin (0.0-1.0) mg/dL Direct Bilirubin (0.0-0.5) mg/dL AST (5-31) U/L ALT (0-31) U/L Alkaline Phosphatase (39-117) U/L Total Protein (6.5-8.0) g/dL Albumin (3.5-5.0) g/dL Lipase (8-78) U/L Influenza Type A (PCR) NEGATIVE (Negative) Influenza Type B (PCR) NEGATIVE (Negative) RSV RNA Qual (PCR) NEGATIVE (Negative) SARS-CoV-2 RNA (RT-PCR) NEGATIVE (Negative) 09/20/22 09/20/22 Range/Units 11:04 12:39 WBC (4.8-10.8) X10*3/uL RBC (4.20-5.50) X10*6/uL Hgb (12.0-16.0) g/dl Hct (37.0-47.0) % MCV (80.0-98.0) fL MCH (27.0-33.0) pg MCHC (31.0-35.0) g/dl RDW (11.0-16.0) % Plt Count (160-400) X10*3/uL MPV (9.4-12.3) fL Immature Gran % (Auto) (0.0-0.4) % Neut % (Auto) (45-73) % Lymph % (Auto) (20-40) % [place] % (Auto) (2-11) % Eos % (Auto) (0-4) % Baso % (Auto) (0-2) % Lymph # (Auto) (1.2-4.9) X10*3/uL [place] # (Auto) (0.1-1.2) X10*3/uL Eos # (Auto) (0.0-0.4) X10*3/uL Baso # (Auto) (0.0-0.2) X10*3/uL Abs Immat Gran (auto) (0.00-0.03) X10*3/uL Absolute Neuts (auto) (2.0-8.3) x10*3/uL Absolute Nucleated RBC (0.0-0.012) X10*3/uL Nucleated RBC % (auto) (0.0-0.2) /100WBC Sodium 138 (135-145) mmol/L Potassium 4.6 (3.3-5.1) mmol/L Chloride 104 (96-108) mmol/L Carbon Dioxide 26 (22-29) mmol/L Anion Gap 13 (12-20) BUN 8 L (9-16) mg/dL Creatinine 0.74 (0.5-1.4) mg/dL Estim Creat Clear Calc 94.5 Estimated GFR > 60 POC Glucose 359 H* (60-115) mg/dL Random Glucose 434 H* (60-115) mg/dL Calcium 8.5 D (8.4-10.2) mg/dL Magnesium 1.7 (1.6-2.6) mg/dL Total Bilirubin 1.0 (0.0-1.0) mg/dL Direct Bilirubin 0.4 (0.0-0.5) mg/dL AST 36 H (5-31) U/L ALT 22 (0-31) U/L Alkaline Phosphatase 92 (39-117) U/L Total Protein 6.6 (6.5-8.0) g/dL Albumin 3.4 L (3.5-5.0) g/dL Lipase 51 (8-78) U/L Influenza Type A (PCR) (Negative) Influenza Type B (PCR) (Negative) RSV RNA Qual (PCR) (Negative) SARS-CoV-2 RNA (RT-PCR) (Negative) Radiology Impression Discussion of test interpretation with radiology: I have reviewed the radiologist's reading. Radiologist Impression: CLINICAL INFORMATION: Reason for Exam cough COMPARISON: No prior chest x-ray available in our system for comparison at the time of this dictation.? TECHNIQUE: XR chest 2V Lungs and Marlyn: Mild diffuse peribronchial cuffing could be sequela of small airway disease such as bronchitis, there is patchy opacity projecting over the left middle lung zone, could be focal patchy infiltrate, atelectasis versus lung nodule. Pleura: Normal. Costophrenic angles are sharp. No pneumothorax. Heart: The heart is normal in size. Mediastinum: The mediastinum is within normal limits.. Bones: Skeletal structures included are normal for patient's age. XR/XR chest 2V IMPRESSION: ? *? Patchy opacity projecting over the left middle lung zone could be focal patchy infiltrate, atelectasis versus lung nodule. Attention to follow-up chest x-ray one month after completion of treatment recommended to ensure complete clearance, if persist then may require further investigation with CT scan. ? *? Mild diffuse peribronchial cuffing might be small airway disease such as bronchitis. ? *? No pleural effusion. ? *? Follow-up recommended to ensure complete clearance and exclude underlying pathology. ? Dictated By: Cindy Ridley MD Prescription Management I considered prescription management with: Antibiotic Chronic Conditions Patient?s care impacted by: Diabetes Discharge Plan Discharge Clinical Impression: Bronchitis Patient Disposition: Home, Self-Care Instructions: Acute Bronchitis (ED) Additional Instructions: Your chest x-ray revealed a patchy opacity over the left middle lung, with signs of bronchitis. We had discussed that this may reflect a lung nodule, please have repeat imaging in 1 month for resolution. Take prescribed antibiotics as directed. Your blood sugar was 413 today. We gave you humalog 10 units today and IV fluids. Please follow up with your primary care physician and clinical informatics director. If any new or worsening symptoms occur, please return for further evaluation. Prescriptions: New amoxicillin-pot clavulanate 875-125 mg tablet 1 tab PO BID Qty: 14 0RF No Action nitrofurantoin monohyd/m-cryst [Macrobid] 100 mg capsule 100 mg PO BID 7 Days Qty: 14 0RF Rx Instructions: must administer with a meal/food metformin 500 mg tablet 2,000 mg PO DAILY aspirin [Adult Low Dose Aspirin] 81 mg tablet,delayed release (DR/EC) 81 mg PO DAILY levothyroxine 200 mcg capsule 200 mcg PO DAILY fluoxetine [Prozac] 20 mg capsule 20 mg PO DAILY Invokana 300 mg tablet 300 mg PO DAILY multivitamin Tablet 1 tab PO DAILY Tresiba FlexTouch U-100 100 unit/mL (3 mL) insulin pen 100 unit subcut DAILY Interventions: ED Discharge Assessment Last Done: 09/20/22 12:55 Discharge Date/Time: 09/20/22 12:56
[2022-09-20 10:36] LABS: Influenza A PCR NEGATIVE (Negative); Influenza B PCR NEGATIVE (Negative); Resp Syncy Virus RNA Qual PCR NEGATIVE (Negative); SARS COV2 PCR INHOUSE NEGATIVE (Negative)
[2022-09-20 10:39] LABS: Glucose, Whole Blood 413 mg/dL (60-115)
[2022-09-20 11:08] LABS: MANUAL DIFF FLAG NO
[2022-09-20 11:12] LABS: Basophils Percent Auto 0.5 % (0-2); Eosinophils Percent Auto 0.3 % (0-4); Hematocrit 27.4 % (37.0-47.0); Hemoglobin 7.6 g/dl (12.0-16.0); Imm Gran Abs Auto 0.02 X10*3/uL (0.00-0.03); Imm Gran Pct Auto 0.3 % (0.0-0.4); Lymphocytes Absolute Auto 1.7 X10*3/uL (1.2-4.9); Lymphocytes Percent Auto 26.5 % (20-40); Mean Corpuscular HGB Conc 27.7 g/dl (31.0-35.0); Mean Corpuscular Hemoglobin 18.9 pg (27.0-33.0); Mean Platelet Volume 10.3 fL (9.4-12.3); Monocytes Absolute Auto 0.5 X10*3/uL (0.1-1.2); Monocytes Percent Auto 7.9 % (2-11); Neutrophils Absolute Auto 4.2 x10*3/uL (2.0-8.3); Neutrophils Percent Auto 64.5 % (45-73); Platelet Count 109 X10*3/uL (160-400); Red Blood Count 4.03 X10*6/uL (4.20-5.50); Red Cell Distribution Width 18.9 % (11.0-16.0); White Blood Count 6.5 X10*3/uL (4.8-10.8)
[2022-09-20] MEDS: Insulin Lispro 100 UNIT/ML 3 ML VIAL 10 UNIT SUBCUT (11:13)
[2022-09-20] MEDS: 0.9 % Sodium Chloride 1,000 ML 999 ML IVCONT (11:14)
[2022-09-20 11:56] VITALS: BP 144/52; PULSE 78; RESP 14; O2SAT 94
[2022-09-20 12:34] LABS: Alanine Aminotransferase 22 U/L (0-31); Albumin Level 3.4 g/dL (3.5-5.0); Alkaline Phosphatase 92 U/L (39-117); Anion Gap 13 (12-20); Aspartate Amino Transferase 36 U/L (5-31); Bilirubin Direct 0.4 mg/dL (0.0-0.5); Blood Urea Nitrogen 8 mg/dL (9-16); Calcium 8.5 mg/dL (8.4-10.2); Carbon Dioxide 26 mmol/L (22-29); Chloride 104 mmol/L (96-108); Creatinine Clr Calc Pharmacy 94.5; Estimated Glomerular Filt Rate > 60; Glucose Random 434 mg/dL (60-115); Lipase 51 U/L (8-78); Magnesium 1.7 mg/dL (1.6-2.6); Potassium 4.6 mmol/L (3.3-5.1); Sodium 138 mmol/L (135-145); Total Protein 6.6 g/dL (6.5-8.0)
[2022-09-20 12:43] LABS: Glucose, Whole Blood 359 mg/dL (60-115)
== END 2022-09-20 12:56 | disposition home or self-care (01) ==
PROVIDERS: Physician Assistant Medical; Emergency Provider Emergency Medicine; PCP Internal Medicine
DX: J40 Bronchitis, not specified as acute or chronic (principal); E11.65 Type 2 diabetes mellitus with hyperglycemia; Z20.822 Contact with and (suspected) exposure to COVID-19; Z20.828 Contact with and (suspected) exposure to other viral communicable diseases; Z79.84 Long term (current) use of oral hypoglycemic drugs; Z79.899 Other long term (current) drug therapy
CPT/HCPCS: 0241U; 36415; 71046; 80048; 80076; 82947; 83690; 83735; 85025; 96360; 99284

== ENCOUNTER 2022-12-08 13:07 | Emergency (ER) | payer OTHER, SELFPAY ==
[2022-12-08] VITALS (12 sets, daily range): BP systolic 118–149; BP diastolic 43–64; PULSE 80–94; RESP 12–20; TEMP 36.4–37.1; O2SAT 96–98; BMI 37.8
--- NOTE | ~2022-12-08 | XR_ITS ---
EXAMINATION: XR CHEST CLINICAL INFORMATION: Chest pain COMPARISON: Chest x-ray 09/20/2022 TECHNIQUE: 2 views of the chest were obtained. FINDINGS: No significant abnormality is noted involving the heart, lungs, mediastinum, bony thorax or soft tissues. XR/XR chest 2V IMPRESSION: Unremarkable chest examination.
--- NOTE | ~2022-12-08 | CT_ITS ---
EXAMINATION: CT ANGIOGRAM OF THE CHEST WITH AND WITHOUT CONTRAST (CT PULMONARY ANGIOGRAM FOR PE) CLINICAL INFORMATION: Reason for Exam Exertional dyspnea. Elevated D-dimer COMPARISON: None available. TECHNIQUE: Prior to contrast administration, noncontrast localization images were obtained. Subsequently, multidetector volumetric imaging was performed from the thoracic inlet to below the diaphragms following the administration of 80 mL Omnipaque 350 intravenous contrast. No contrast reaction reported Sagittal, coronal, and MIP oblique sagittal reformatted images were obtained on the CT workstation, uploaded to PACS, and reviewed. This CT examination was performed using dose optimization techniques as appropriate, variously including the following: *Automated exposure control *Adjustment of mA and/or kV according to patient size (this includes techniques or standardized protocols for targeted exams where dose is matched to indication/reason for exam; i.e. extremities or head) *Use of iterative reconstruction technique Total exam dose-length product 580 mGy-cm FINDINGS: QUALITY OF STUDY/CONTRAST BOLUS: Satisfactory. PULMONARY ARTERIES: No pulmonary emboli. THORACIC AORTA: No aneurysm. LUNG: No focal consolidation, nodules or masses. PLEURA: No pleural effusion or pneumothorax. MEDIASTINUM: Normal heart size. No pericardial effusion. No hilar or mediastinal lymphadenopathy. No evidence of septal bowing or right heart strain. CORONARY ARTERY CALCIFICATION: None visualized on this study. CHEST WALL/AXILLA: No axillary or internal mammary lymphadenopathy. OSSEOUS STRUCTURES: No acute or suspicious osseous abnormality. UPPER ABDOMEN: Small volume of ascites around the right lobe of liver. No reflux of contrast into the hepatic veins to suggest elevated right heart pressures. Right renal cyst measuring 2.3 cm. No follow-up imaging is recommended for simple renal cyst. CT/CT angio chest PE protocol IMPRESSION: 1. No acute abnormality of chest. No evidence of pulmonary embolism. 2. Small volume of ascites around the right lobe of liver. VTE: negative.
--- NOTE | 2022-12-08 13:09 | ECG_ITS ---
Test Reason : CP, SOB Blood Pressure : / mmHG Vent. Rate : 088 BPM Atrial Rate : 088 BPM P-R Int : 138 ms QRS Dur : 086 ms QT Int : 402 ms P-R-T Axes : 032 013 030 degrees QTc Int : 486 ms Normal sinus rhythm Cannot rule out Anterior infarct , age undetermined ; could be related to body habitus and lead placement Prolonged QT Abnormal ECG No previous ECGs available Referred By: Sherita Ovalles Electronically Signed By:DIANN SALAZAR
--- NOTE | 2022-12-08 13:25 | ED.CHESTPAIN ---
HPI - Chest Pain General Chief Complaint: Chest Pain Stated Complaint: Chest pain/Rapid heart rate/Nausea Time Seen by Provider: 12/08/22 14:01 Source: patient, RN notes reviewed and old records reviewed Mode of arrival: ambulatory History of Present Illness HPI narrative: 62-year-old female with a past medical history of diabetes, hypothyroid, HLD, asthma, presenting to the ED complaining of exertional dyspnea, palpitations, intermittent CP, and nausea x 3 weeks. Of note patient was evaluated in our ED on 09/20 diagnosed with bronchitis, noted to be anemic with a hemoglobin of 7.6/27.4 not requiring transfusion. Admits was taking outpatient iron however self stopped due to induced constipation. Also reports sedentary lifestyle, has been living on sofa, minimal activities inducing SOB, also admits to SOB at rest at present. Did recently drive to [place] in October. Denies fever, chills, cough, abdominal pain, vomiting, diarrhea, pedal edema, calf pain, history of clots, melena, bloody stools, hematuria. Does take baby ASA, denies other AC MD complaint: chest pain Related Data Home Medications Medication Instructions Recorded Confirmed aspirin 81 mg tablet,delayed 81 mg PO DAILY 11/15/21 12/08/22 release (Adult Low Dose Aspirin) levothyroxine 200 mcg capsule 200 mcg PO DAILY 11/15/21 12/08/22 multivitamin 1 tab PO DAILY 11/15/21 12/08/22 atorvastatin 10 mg tablet 10 mg PO BEDTIME 12/08/22 12/08/22 citalopram 20 mg tablet 20 mg PO DAILY 12/08/22 12/08/22 dulaglutide 1.5 mg/0.5 mL 1.5 mg subcut MO 12/08/22 12/08/22 subcutaneous pen injector (Trulicity) empagliflozin 25 mg tablet 25 mg PO DAILY 12/08/22 12/08/22 (Jardiance) ferrous sulfate 325 mg (65 mg 325 mg PO DAILY 12/08/22 12/08/22 iron) tablet insulin glargine 100 unit/mL (3 40 unit subcut BEDTIME 12/08/22 12/08/22 mL) subcutaneous pen (Lantus Solostar U-100 Insulin) metformin 500 mg tablet,extended 2,000 mg PO BEDTIME 12/08/22 12/08/22 release 24 hr thiamine HCl (vitamin B1) 100 mg 100 mg PO DAILY 12/08/22 12/08/22 tablet (Vitamin B-1) Allergies Allergy/AdvReac Type Severity Reaction Status Date / Time Sulfa (Sulfonamide Allergy Rash Verified 12/08/22 13:32 Antibiotics) Review of Systems Review of Systems: Constitutional: No Fever, No Chills, No Fatigue, No Malaise ENT/Mouth: No Ear Pain, No Nasal Congestion, No sore throat, No Rhinorrhea, No Swallowing Difficulty Eyes: No Eye Pain, No Swelling, No Redness, No Vision Changes Cardiovascular: +intermittent Chest Pain, No SOB, + Dyspnea on Exertion, No Orthopnea, No Edema, + Palpitations Respiratory: No Cough, No Sputum, No Dyspnea Gastrointestinal: + Nausea, No Vomiting, No Diarrhea, No Constipation, No Abdominal pain, No Hematochezia, No Melena Genitourinary: No irregular bleeding, No Dysuria, No Urinary Frequency, No Hematuria, No Flank Pain Musculoskeletal: No joint pain, No Myalgias, No Joint Swelling Skin: No Skin Lesions, No rash Neuro: No Weakness, No Numbness, No Paresthesias, No Loss of Consciousness, No Dizziness, No Headache Yes all other systems are reviewed and are negative Constitutional: Constitutional: Reports as per [facility] Past Medical History Attestation statement: The following information was validated with the patient. Source: old records reviewed Medical History Depression Diabetes Hypothyroid Surgical History S/P rotator cuff repair Social History Social History Alcohol intake: current Alcohol intake frequency: 0-2 drinks per day Patient Tobacco Use Status: Former Tobacco user Smoked in Last 30 Days: No Use of substances other than those prescribed or required for medical reasons: No Advance Directives: No Advance Directives Information Provided: Yes Patient : No Current occupational status: unemployed Current occupation: rt hand Physical Exam Vital Signs: Vital Signs: Last Vital Signs Temp 98.7 F 12/08/22 21:45 Pulse 89 12/08/22 21:45 Resp 16 12/08/22 21:45 BP 125/50 L 12/08/22 21:45 Pulse Ox 96 12/08/22 21:45 O2 Del Method Room Air 12/08/22 21:45 BMI result Body Mass Index 37.8 Const: General: cooperative, healthy appearing and no acute distress Orientation/consciousness: patient oriented x3 Limitations: no limitations HEENT: Head: Yes normal to inspection and Yes atraumatic Ears: hearing grossly normal bilaterally General nose exam: Normal external nose present Face and sinus: Yes normal facial exam Eyes: General: appearance normal, both eyes and all related structures EOM: EOMs intact bilaterally Neck: Neck: Yes normal visual inspection and Yes no meningeal signs Resp: Effort & Inspection: normal respiratory effort and no respiratory distress Auscultation: clear to auscultation bilaterally, no crackles, no rales, no rhonchi and no wheezes Cardio: Rate: regular rate Heart sounds: S1 normal heart sound present and S2 normal heart sound present GI: Inspection: Yes normal to inspection Palpation (GI): Soft to palpation, nontender, no guarding and not rigid Rectal Exam - Female: visual inspection normal : General: Yes no CVA tenderness Back/Spine/Pelvis: Back: no CVA tenderness Skin: Rashes: no rashes Wounds: no wounds Neuro: General: patient oriented x3, tone normal, moves all extremities and no meningeal signs Gait exam (Neuro): Normal gait present Extrem: General: Yes normal to inspection, Yes no pedal edema and Yes no calf tenderness Course Course Course Narrative: RME - 62 yo female with history of iron deficiency anemia, hx PNA, daily ETOH use, DM2 on insulin presents to the ER for central chest pains, VAL[place], palpitations and nausea that have been worsening for the last couple of weeks. All symptoms worse with exertion. Hx anemia with Hgb 7.6 in September, did not require transfusion. Now off iron. No melena. Plan: EKG, labs, CXR -1450--no leukocytosis. Notably anemic 5.5/19.3 > will obtain occult stool. Patient continues to deny bloody/black stools >> blood consent signed and in patient's chart. 2 unit RBCs ordered -AST/ALT chronically elevated. Troponin elevated to 39.9 > will obtain 3 hour repeat -1603--D-dimer elevated > will obtain CTA to rule out PE -occult stool negative XR chest 2V IMPRESSION: Unremarkable chest examination. -1630--ED care transferred to [facility] pending repeat troponin, CTA, and admission Reevaluation(s) Reevaluation #1: Patient received in sign-out at change of shift pending CTA and admission. The patient's repeat troponin was reported as critical at 52. This is an increase from 30/9 0.9. Does not appear consistent with ACS but more likely demand ischemia related to her significant anemia. Still awaiting CTA at this time. Time: 17:57 Reevaluation #2: Patient's CTA negative for PE. Discussed with the hospitalist for admission of symptomatic anemia. Time: 20:54 Reevaluation #3: Discussed with Dr. Jacobson, she feels that given the patient is not actively bleeding, has a history of anemia and stop taking her iron, if we repeat an H and H in the patient is no longer severely anemic, the patient can be discharged. When I re-evaluated the patient, she is no longer having chest pain or palpitations. I feel it is appropriate for discharge for repeat H&H and her hemoglobin is adequate above 7 Additional Reevaluation(s): Patient's repeat hemoglobin 7.2, the patient remains asymptomatic, stable for discharge Medications Administered Discontinued Medications Generic Name Dose Route Start Last Admin Trade Name Freq PRN Reason Stop Dose Admin Iohexol 100 ml 12/08/22 17:40 12/08/22 17:41 Iohexol 350 Mg/Ml 100 Ml Infus..Btl IV 12/08/22 17:41 65 ml ONCE ONE Administration Medical Decision Making Medical Decision Making MDM Narrative: 62-year-old female with a past medical history of diabetes, hypothyroid, HLD, asthma, presenting to the ED complaining of exertional dyspnea, palpitations, intermittent CP, and nausea x 3 weeks. On exam vital signs stable, satting 98% on RA, abdomen soft/nontender, no pitting edema or calf tenderness. Concern for symptomatic anemia vs CHF vs PE vs atypical ACS. Lower suspicion for pneumonia, DVT, dissection Plan: EKG, labs, occult stool, CXR, UA, ambulating pulse ox, re-evaluate Please refer to course for remaining clinical decision making, interpretation of labs/imaging results, and discussions with consultants and/or family members. Differential Diagnosis Differential Diagnoses: The differential diagnosis associated with the presentation includes As above Admission/Observation Consideration of admission/observation: Escalation of care including admission/observation considered Consult Healthcare Provider Management of the patient was discussed with: Hospitalist Lab Data MDM Lab Attestation statement: I reviewed the patient's lab results. 12/08/22 14:06 12/08/22 14:06 Labs: Lab Results 12/08/22 12/08/22 12/08/22 Range/Units 14:06 14:06 14:06 WBC 6.6 (4.8-10.8) X10*3/uL RBC 2.44 L D (4.20-5.50) X10*6/uL Hgb 5.5 L* D (12.0-16.0) g/dl Hct 19.3 L* D (37.0-47.0) % MCV 79.1 L (80.0-98.0) fL MCH 22.5 L (27.0-33.0) pg MCHC 28.5 L (31.0-35.0) g/dl RDW 22.2 H (11.0-16.0) % Plt Count 153 L D (160-400) X10*3/uL MPV 10.8 (9.4-12.3) fL Immature Gran % (Auto) 0.3 (0.0-0.4) % Neut % (Auto) 58.3 (45-73) % Lymph % (Auto) 30.3 (20-40) % [place] % (Auto) 10.3 (2-11) % Eos % (Auto) 0.0 (0-4) % Baso % (Auto) 0.8 (0-2) % Lymph # (Auto) 2.0 (1.2-4.9) X10*3/uL [place] # (Auto) 0.7 (0.1-1.2) X10*3/uL Eos # (Auto) 0.0 (0.0-0.4) X10*3/uL Baso # (Auto) 0.1 (0.0-0.2) X10*3/uL Abs Immat Gran (auto) 0.02 (0.00-0.03) X10*3/uL Absolute Neuts (auto) 3.9 (2.0-8.3) x10*3/uL Absolute Nucleated RBC 0.110 H (0.0-0.012) X10*3/uL Nucleated RBC % (auto) 1.7 H (0.0-0.2) /100WBC PT (10.0-13.1) SEC INR (0.9-1.1) APTT (26.0-36.4) SEC D-Dimer High Sensitivty NG/ML Sodium 137 (135-145) mmol/L Potassium 4.1 (3.3-5.1) mmol/L Chloride 106 (96-108) mmol/L Carbon Dioxide 23 (22-29) mmol/L Anion Gap 12 (12-20) BUN 11 (9-16) mg/dL Creatinine 0.72 (0.5-1.4) mg/dL Estim Creat Clear Calc 94.2 Estimated GFR > 60 Random Glucose 183 H (60-115) mg/dL Calcium 9.0 (8.4-10.2) mg/dL Magnesium 1.8 (1.6-2.6) mg/dL Total Bilirubin 0.9 (0.0-1.0) mg/dL Direct Bilirubin 0.4 (0.0-0.5) mg/dL AST 56 H (5-31) U/L ALT 35 H (0-31) U/L Alkaline Phosphatase 95 (39-117) U/L Troponin I High Sens 39.9 H (<3.5-17.0) ng/L B-Natriuretic Peptide (<100) pg/mL Total Protein 6.3 L (6.5-8.0) g/dL Albumin 3.2 L (3.5-5.0) g/dL Lipase 35 (8-78) U/L TSH 1.75 (0.32-4.0) uIU/mL Urine Color Urine Appearance Urine pH (5.0-9.0) Ur Specific [place] (1.005-1.025) Urine Protein (Neg-Trace) mg/dL Urine Glucose (UA) (Negative) mg/dL Urine Ketones (Negative) mg/dL Urine Blood (Negative) Urine Nitrite (Negative) Ur Leukocyte Esterase (Negative) Urine RBC (0-2) /HPF Urine WBC (0-5) /HPF Ur Squamous Epith Cells (0-2) /HPF Urine Bacteria (None Seen) Hyaline Casts (0-2) /LPF Stool Occult Blood (NEGATIVE) Urine Opiates Screen (Not Detect) Urine Fentanyl Screen (Not Detect) Ur Barbiturates Screen (Not Detect) Ur Phencyclidine Scrn (Not Detect) Ur Amphetamines Screen (Not Detect) U Benzodiazepines Scrn (Not Detect) Urine Cocaine Screen (Not Detect) U Marijuana (THC) Screen (Not Detect) Ethyl Alcohol < 10 mg/dL Blood Type Antibody Screen Crossmatch 12/08/22 12/08/22 12/08/22 Range/Units 14:06 14:06 14:51 WBC (4.8-10.8) X10*3/uL RBC (4.20-5.50) X10*6/uL Hgb (12.0-16.0) g/dl Hct (37.0-47.0) % MCV (80.0-98.0) fL MCH (27.0-33.0) pg MCHC (31.0-35.0) g/dl RDW (11.0-16.0) % Plt Count (160-400) X10*3/uL MPV (9.4-12.3) fL Immature Gran % (Auto) (0.0-0.4) % Neut % (Auto) (45-73) % Lymph % (Auto) (20-40) % [place] % (Auto) (2-11) % Eos % (Auto) (0-4) % Baso % (Auto) (0-2) % Lymph # (Auto) (1.2-4.9) X10*3/uL [place] # (Auto) (0.1-1.2) X10*3/uL Eos # (Auto) (0.0-0.4) X10*3/uL Baso # (Auto) (0.0-0.2) X10*3/uL Abs Immat Gran (auto) (0.00-0.03) X10*3/uL Absolute Neuts (auto) (2.0-8.3) x10*3/uL Absolute Nucleated RBC (0.0-0.012) X10*3/uL Nucleated RBC % (auto) (0.0-0.2) /100WBC PT 11.8 (10.0-13.1) SEC INR 1.0 (0.9-1.1) APTT 26.8 (26.0-36.4) SEC D-Dimer High Sensitivty 296 NG/ML Sodium (135-145) mmol/L Potassium (3.3-5.1) mmol/L Chloride (96-108) mmol/L Carbon Dioxide (22-29) mmol/L Anion Gap (12-20) BUN (9-16) mg/dL Creatinine (0.5-1.4) mg/dL Estim Creat Clear Calc Estimated GFR Random Glucose (60-115) mg/dL Calcium (8.4-10.2) mg/dL Magnesium (1.6-2.6) mg/dL Total Bilirubin (0.0-1.0) mg/dL Direct Bilirubin (0.0-0.5) mg/dL AST (5-31) U/L ALT (0-31) U/L Alkaline Phosphatase (39-117) U/L Troponin I High Sens (<3.5-17.0) ng/L B-Natriuretic Peptide 185 H (<100) pg/mL Total Protein (6.5-8.0) g/dL Albumin (3.5-5.0) g/dL Lipase (8-78) U/L TSH (0.32-4.0) uIU/mL Urine Color Yellow Urine Appearance Clear Urine pH 6.0 (5.0-9.0) Ur Specific [place] >= 1.030 H (1.005-1.025) Urine Protein Negative (Neg-Trace) mg/dL Urine Glucose (UA) >=1000 H (Negative) mg/dL Urine Ketones 15 (Negative) mg/dL Urine Blood Negative (Negative) Urine Nitrite Negative (Negative) Ur Leukocyte Esterase Negative (Negative) Urine RBC 0-2 (0-2) /HPF Urine WBC 11-20 H (0-5) /HPF Ur Squamous Epith Cells 3-5 (0-2) /HPF Urine Bacteria Trace (None Seen) Hyaline Casts 0-2 (0-2) /LPF Stool Occult Blood (NEGATIVE) Urine Opiates Screen (Not Detect) Urine Fentanyl Screen (Not Detect) Ur Barbiturates Screen (Not Detect) Ur Phencyclidine Scrn (Not Detect) Ur Amphetamines Screen (Not Detect) U Benzodiazepines Scrn (Not Detect) Urine Cocaine Screen (Not Detect) U Marijuana (THC) Screen (Not Detect) Ethyl Alcohol mg/dL Blood Type Antibody Screen Crossmatch 12/08/22 12/08/22 12/08/22 Range/Units 14:51 14:51 14:51 WBC (4.8-10.8) X10*3/uL RBC (4.20-5.50) X10*6/uL Hgb (12.0-16.0) g/dl Hct (37.0-47.0) % MCV (80.0-98.0) fL MCH (27.0-33.0) pg MCHC (31.0-35.0) g/dl RDW (11.0-16.0) % Plt Count (160-400) X10*3/uL MPV (9.4-12.3) fL Immature Gran % (Auto) (0.0-0.4) % Neut % (Auto) (45-73) % Lymph % (Auto) (20-40) % [place] % (Auto) (2-11) % Eos % (Auto) (0-4) % Baso % (Auto) (0-2) % Lymph # (Auto) (1.2-4.9) X10*3/uL [place] # (Auto) (0.1-1.2) X10*3/uL Eos # (Auto) (0.0-0.4) X10*3/uL Baso # (Auto) (0.0-0.2) X10*3/uL Abs Immat Gran (auto) (0.00-0.03) X10*3/uL Absolute Neuts (auto) (2.0-8.3) x10*3/uL Absolute Nucleated RBC (0.0-0.012) X10*3/uL Nucleated RBC % (auto) (0.0-0.2) /100WBC PT (10.0-13.1) SEC INR (0.9-1.1) APTT (26.0-36.4) SEC D-Dimer High Sensitivty NG/ML Sodium (135-145) mmol/L Potassium (3.3-5.1) mmol/L Chloride (96-108) mmol/L Carbon Dioxide (22-29) mmol/L Anion Gap (12-20) BUN (9-16) mg/dL Creatinine (0.5-1.4) mg/dL Estim Creat Clear Calc Estimated GFR Random Glucose (60-115) mg/dL Calcium (8.4-10.2) mg/dL Magnesium (1.6-2.6) mg/dL Total Bilirubin (0.0-1.0) mg/dL Direct Bilirubin (0.0-0.5) mg/dL AST (5-31) U/L ALT (0-31) U/L Alkaline Phosphatase (39-117) U/L Troponin I High Sens (<3.5-17.0) ng/L B-Natriuretic Peptide (<100) pg/mL Total Protein (6.5-8.0) g/dL Albumin (3.5-5.0) g/dL Lipase 37 (8-78) U/L TSH (0.32-4.0) uIU/mL Urine Color Urine Appearance Urine pH (5.0-9.0) Ur Specific [place] (1.005-1.025) Urine Protein (Neg-Trace) mg/dL Urine Glucose (UA) (Negative) mg/dL Urine Ketones (Negative) mg/dL Urine Blood (Negative) Urine Nitrite (Negative) Ur Leukocyte Esterase (Negative) Urine RBC (0-2) /HPF Urine WBC (0-5) /HPF Ur Squamous Epith Cells (0-2) /HPF Urine Bacteria (None Seen) Hyaline Casts (0-2) /LPF Stool Occult Blood (NEGATIVE) Urine Opiates Screen Not Detected (Not Detect) Urine Fentanyl Screen Not Detected (Not Detect) Ur Barbiturates Screen Not Detected (Not Detect) Ur Phencyclidine Scrn Not Detected (Not Detect) Ur Amphetamines Screen Not Detected (Not Detect) U Benzodiazepines Scrn Not Detected (Not Detect) Urine Cocaine Screen Not Detected (Not Detect) U Marijuana (THC) Screen Not Detected (Not Detect) Ethyl Alcohol mg/dL Blood Type B Positive Antibody Screen NEGATIVE Crossmatch See Detail 12/08/22 12/08/22 12/08/22 Range/Units 14:51 17:08 21:28 WBC 6.1 (4.8-10.8) X10*3/uL RBC 2.97 L D (4.20-5.50) X10*6/uL Hgb 7.2 L D (12.0-16.0) g/dl Hct 24.1 L D (37.0-47.0) % MCV 81.1 (80.0-98.0) fL MCH 24.2 L (27.0-33.0) pg MCHC 29.9 L (31.0-35.0) g/dl RDW 21.6 H (11.0-16.0) % Plt Count 111 L D (160-400) X10*3/uL MPV 10.1 (9.4-12.3) fL Immature Gran % (Auto) 0.7 H (0.0-0.4) % Neut % (Auto) 65.3 (45-73) % Lymph % (Auto) 24.0 (20-40) % [place] % (Auto) 9.3 (2-11) % Eos % (Auto) 0.0 (0-4) % Baso % (Auto) 0.7 (0-2) % Lymph # (Auto) 1.5 (1.2-4.9) X10*3/uL [place] # (Auto) 0.6 (0.1-1.2) X10*3/uL Eos # (Auto) 0.0 (0.0-0.4) X10*3/uL Baso # (Auto) 0.0 (0.0-0.2) X10*3/uL Abs Immat Gran (auto) 0.04 H (0.00-0.03) X10*3/uL Absolute Neuts (auto) 4.0 (2.0-8.3) x10*3/uL Absolute Nucleated RBC 0.090 H (0.0-0.012) X10*3/uL Nucleated RBC % (auto) 1.5 H (0.0-0.2) /100WBC PT (10.0-13.1) SEC INR (0.9-1.1) APTT (26.0-36.4) SEC D-Dimer High Sensitivty NG/ML Sodium (135-145) mmol/L Potassium (3.3-5.1) mmol/L Chloride (96-108) mmol/L Carbon Dioxide (22-29) mmol/L Anion Gap (12-20) BUN (9-16) mg/dL Creatinine (0.5-1.4) mg/dL Estim Creat Clear Calc Estimated GFR Random Glucose (60-115) mg/dL Calcium (8.4-10.2) mg/dL Magnesium (1.6-2.6) mg/dL Total Bilirubin (0.0-1.0) mg/dL Direct Bilirubin (0.0-0.5) mg/dL AST (5-31) U/L ALT (0-31) U/L Alkaline Phosphatase (39-117) U/L Troponin I High Sens 52.0 H* (<3.5-17.0) ng/L B-Natriuretic Peptide (<100) pg/mL Total Protein (6.5-8.0) g/dL Albumin (3.5-5.0) g/dL Lipase (8-78) U/L TSH (0.32-4.0) uIU/mL Urine Color Urine Appearance Urine pH (5.0-9.0) Ur Specific [place] (1.005-1.025) Urine Protein (Neg-Trace) mg/dL Urine Glucose (UA) (Negative) mg/dL Urine Ketones (Negative) mg/dL Urine Blood (Negative) Urine Nitrite (Negative) Ur Leukocyte Esterase (Negative) Urine RBC (0-2) /HPF Urine WBC (0-5) /HPF Ur Squamous Epith Cells (0-2) /HPF Urine Bacteria (None Seen) Hyaline Casts (0-2) /LPF Stool Occult Blood NEGATIVE (NEGATIVE) Urine Opiates Screen (Not Detect) Urine Fentanyl Screen (Not Detect) Ur Barbiturates Screen (Not Detect) Ur Phencyclidine Scrn (Not Detect) Ur Amphetamines Screen (Not Detect) U Benzodiazepines Scrn (Not Detect) Urine Cocaine Screen (Not Detect) U Marijuana (THC) Screen (Not Detect) Ethyl Alcohol mg/dL Blood Type Antibody Screen Crossmatch Independent Interpretation I performed an independent interpretation of an: EKG ( EKG normal sinus rhythm at a rate of 88. CA interval 138. QTC 486. No STEMI. No previous EKGs to compare) Radiology Impression Discussion of test interpretation with radiology: I have reviewed the radiologist's reading. Independent Historian Clinical information obtained from an independent historian. History obtained from or confirmed by: Other (family) External Record Review External record reviewed: Inpatient record, Office record, Outpatient record, Prior outpatient labs, Prior outpatient radiology, Primary care record and Outside ED record Tests considered The following testing was considered but not selected: As above Chronic Conditions Patient?s care impacted by: Diabetes and Other (anemia) Critical Care Time Critical Care Time Critical Care Time: Yes Total Critical Care Time: 45 Attestation: I have personally provided critical care time exclusive of time spent on separately billable procedures. Time includes review of lab data, radiology results, discussion with consultants, and monitoring for potential decompensation. Intervention performed as documented. Discharge Plan Discharge Clinical Impression: Symptomatic anemia, Exertional dyspnea Patient Disposition: Home, Self-Care Instructions: Iron Deficiency Anemia (ED) Additional Instructions: It is very important that you take your iron prescription exactly as prescribed You may use MiraLax or magnesium citrate [id number] to help prevent constipation You should also increase fluid and fiber intake in your diet Follow-up with your primary doctor Prescriptions: No Action thiamine HCl (vitamin B1) [Vitamin B-1] 100 mg tablet 100 mg PO DAILY ferrous sulfate 325 mg (65 mg iron) tablet 325 mg PO DAILY insulin glargine [Lantus Solostar U-100 Insulin] 100 unit/mL (3 mL) insulin pen 40 unit subcut BEDTIME Jardiance 25 mg tablet 25 mg PO DAILY Trulicity 1.5 mg/0.5 mL pen injector 1.5 mg subcut MO atorvastatin 10 mg tablet 10 mg PO BEDTIME citalopram 20 mg tablet 20 mg PO DAILY metformin 500 mg tablet extended release 24 hr 2,000 mg PO BEDTIME aspirin [Adult Low Dose Aspirin] 81 mg tablet,delayed release (DR/EC) 81 mg PO DAILY levothyroxine 200 mcg capsule 200 mcg PO DAILY multivitamin Tablet 1 tab PO DAILY
[2022-12-08 14:12] LABS: MANUAL DIFF FLAG NO
[2022-12-08 14:18] LABS: Basophils Absolute Auto 0.1 X10*3/uL (0.0-0.2); Basophils Percent Auto 0.8 % (0-2); Imm Gran Abs Auto 0.02 X10*3/uL (0.00-0.03); Imm Gran Pct Auto 0.3 % (0.0-0.4); Lymphocytes Percent Auto 30.3 % (20-40); Mean Corpuscular HGB Conc 28.5 g/dl (31.0-35.0); Mean Corpuscular Hemoglobin 22.5 pg (27.0-33.0); Mean Corpuscular Volume 79.1 fL (80.0-98.0); Mean Platelet Volume 10.8 fL (9.4-12.3); Monocytes Absolute Auto 0.7 X10*3/uL (0.1-1.2); Monocytes Percent Auto 10.3 % (2-11); Neutrophils Absolute Auto 3.9 x10*3/uL (2.0-8.3); Neutrophils Percent Auto 58.3 % (45-73); Platelet Count 153 X10*3/uL (160-400); Red Blood Count 2.44 X10*6/uL (4.20-5.50); Red Cell Distribution Width 22.2 % (11.0-16.0); White Blood Count 6.6 X10*3/uL (4.8-10.8)
[2022-12-08 14:19] LABS: Prothrombin Time 11.8 SEC (10.0-13.1)
[2022-12-08 14:22] LABS: Hematocrit 19.3 % (37.0-47.0); Hemoglobin 5.5 g/dl (12.0-16.0); NRBC Pct Auto 1.7 /100WBC (0.0-0.2); Partial Thromboplastin Time 26.8 SEC (26.0-36.4)
[2022-12-08 14:41] LABS: B Type Natriuretic Peptide 185 pg/mL (<100)
[2022-12-08 14:44] LABS: Troponin-I High Sensitivity 39.9 ng/L (<3.5-17.0)
[2022-12-08 14:47] LABS: Alanine Aminotransferase 35 U/L (0-31); Albumin Level 3.2 g/dL (3.5-5.0); Alkaline Phosphatase 95 U/L (39-117); Anion Gap 12 (12-20); Aspartate Amino Transferase 56 U/L (5-31); Bilirubin Direct 0.4 mg/dL (0.0-0.5); Bilirubin Total 0.9 mg/dL (0.0-1.0); Blood Urea Nitrogen 11 mg/dL (9-16); Carbon Dioxide 23 mmol/L (22-29); Chloride 106 mmol/L (96-108); Creatinine Clr Calc Pharmacy 94.2; Estimated Glomerular Filt Rate > 60; Ethanol < 10 mg/dL; Glucose Random 183 mg/dL (60-115); Magnesium 1.8 mg/dL (1.6-2.6); Potassium 4.1 mmol/L (3.3-5.1); Sodium 137 mmol/L (135-145); Total Protein 6.3 g/dL (6.5-8.0)
[2022-12-08 14:58] LABS: TSH reflex Free T4 1.75 uIU/mL (0.32-4.0)
[2022-12-08 14:59] LABS: D Dimer High Sensitivity 296 NG/ML
[2022-12-08 15:05] LABS: Appearance Urine Clear; Color Urine Yellow; Glucose Urine UA >=1000 mg/dL (Negative); Leukocyte Esterase Urine Negative (Negative); Nitrite Urine Negative (Negative); Specific Gravity - Urine >= 1.030 (1.005-1.025); UMIC TRIGGER UACC YES; Urine Blood Negative (Negative); Urine Ketones 15 mg/dL (Negative); Urine Protein Negative (Neg-Trace)
[2022-12-08 15:13] LABS: OBS Int Ctl Valid YES; OBS1 NEGATIVE (NEGATIVE)
[2022-12-08 15:14] LABS: Amphetamine Screen Urine Not Detected (Not Detect); Barbiturates, Urine Not Detected (Not Detect); Benzodiazepines Screen Urine Not Detected (Not Detect); Cannabinoid Screen Urine Not Detected (Not Detect); Cocaine Screen Urine Not Detected (Not Detect); Fentanyl, urine Not Detected (Not Detect); Opiate Screen Urine Not Detected (Not Detect); Phencyclidine Screen Urine Not Detected (Not Detect)
[2022-12-08 15:26] LABS: Lipase 37 U/L (8-78)
--- NOTE | 2022-12-08 16:14 | PC.NURSE ---
transfusion given. diastolic bp low, PA aware. vitals otherwise stable. will ctm
[2022-12-08 16:22] LABS: Bacteria Urine Trace (None Seen); Hyaline Casts Urine 0-2 /LPF (0-2); RBC Urine 0-2 /HPF (0-2); UACC Culture Trigger YES
[2022-12-08] MEDS: iohexoL 350 MG/ML 100 ML INFUS..BTL IV (17:41)
--- NOTE | 2022-12-08 18:48 | PC.NURSE ---
second unit of blood infusing per TAR. no distress noted. diastolic continues to be low, PA aware. will ctm
[2022-12-08 18:59] LABS: Lipase 35 U/L (8-78)
--- NOTE | 2022-12-08 21:29 | PHA.MEDREC ---
Pharmacy Consult ? Medication Reconciliation Pharmacy has completed the medication reconciliation. Patient reported all medications. Agustina Manzo, RaviD
[2022-12-08 21:32] LABS: MANUAL DIFF FLAG NO
[2022-12-08 21:43] LABS: Basophils Percent Auto 0.7 % (0-2); Hematocrit 24.1 % (37.0-47.0); Hemoglobin 7.2 g/dl (12.0-16.0); Imm Gran Abs Auto 0.04 X10*3/uL (0.00-0.03); Imm Gran Pct Auto 0.7 % (0.0-0.4); Lymphocytes Absolute Auto 1.5 X10*3/uL (1.2-4.9); Mean Corpuscular HGB Conc 29.9 g/dl (31.0-35.0); Mean Corpuscular Hemoglobin 24.2 pg (27.0-33.0); Mean Corpuscular Volume 81.1 fL (80.0-98.0); Mean Platelet Volume 10.1 fL (9.4-12.3); Monocytes Absolute Auto 0.6 X10*3/uL (0.1-1.2); Monocytes Percent Auto 9.3 % (2-11); Neutrophils Percent Auto 65.3 % (45-73); Platelet Count 111 X10*3/uL (160-400); Red Blood Count 2.97 X10*6/uL (4.20-5.50); Red Cell Distribution Width 21.6 % (11.0-16.0); White Blood Count 6.1 X10*3/uL (4.8-10.8)
[2022-12-08 21:49] LABS: NRBC Pct Auto 1.5 /100WBC (0.0-0.2)
== END 2022-12-08 23:10 | disposition home or self-care (01) ==
PROVIDERS: Physician Assistant; Emergency Provider Emergency Medicine; PCP Internal Medicine
DX: D50.9 Iron deficiency anemia, unspecified (principal); R06.09 Other forms of dyspnea; R06.02 Shortness of breath; E11.9 Type 2 diabetes mellitus without complications; E78.5 Hyperlipidemia, unspecified; Z87.891 Personal history of nicotine dependence; Z79.82 Long term (current) use of aspirin; Z79.4 Long term (current) use of insulin; Z79.02 Long term (current) use of antithrombotics/antiplatelets; Z79.899 Other long term (current) drug therapy
CPT/HCPCS: 36415; 36430; 71046; 71275; 80048; 80076; 80307; 81001; 81003; 82272; 83690; 83735; 83880; 84443; 84484; 85025; 85379; 85610; 85730; 86850; 86900; 86901; 86923; 87086; 93005; 99285; P9016; Q9967

== ENCOUNTER 2023-01-09 16:01 | Inpatient (IN) | payer OTHER, SELFPAY ==
--- NOTE | ~2023-01-09 | CT_ITS ---
EXAMINATION: CT ABDOMEN AND PELVIS WITH CONTRAST, GI bleeding study. CLINICAL INFORMATION: Black stool and hematemesis COMPARISON: None. TECHNIQUE: Scanning of the abdomen and pelvis performed without and with administration of 85 mL of Omnipaque 350 IV contrast. Repeat scanning was then performed after 2 minute delay. DLP: 2098 mGy-cm. FINDINGS: Lung bases: There are regions of atelectasis present without confluent pneumonitis being seen. No pleural or pericardial effusion. Coronary artery calcifications are present. There are prominent esophageal varices seen. There are a few pericardial lymph nodes present the largest about the anterior right pericardial region measuring 1.6 x 1.1 cm in size. LIVER, GALLBLADDER, BILIARY TREE: The liver has a heterogeneous and nodular appearance consistent with hepatic cirrhosis. No suspicious focal solid mass is seen. Portal and hepatic veins are patent. No intrahepatic bile duct dilatation is seen. PANCREAS: No abnormal mass or peripancreatic inflammatory change. SPLEEN: There is splenomegaly with vertical span of 15 cm. ADRENAL GLANDS AND KIDNEYS: No adrenal gland abnormalities appreciated. There is an approximately 5 cm right renal simple cyst which does not require follow-up. No hydronephrosis is identified. No renal calculi are seen. No suspicious solid renal masses are noted. URETERS AND BLADDER: Unremarkable BOWEL LOOPS: No free air or free fluid identified. No dilated loops of large or small bowel are seen. There appears to be extravasation of increased density about the medial fundus of the stomach consistent with an acute bleed. There is diverticulosis without evidence of acute diverticulitis of the colon. Appendix appears unremarkable. LYMPHOVASCULAR STRUCTURES: Pericardial lymphadenopathy as described above. No definite abnormal abdominal or pelvic lymphadenopathy. There are prominent esophageal varices present as well as short gastric varices and other portal varices present. The portal vein, hepatic veins, superior mesenteric vein, and splenic vein are patent. There is mild calcified plaque within the abdominal aorta without abdominal aortic aneurysm. BONES: No suspicious destructive bony lesions identified. CT/CT gi bleed abd pel wo/w IVcon IMPRESSION: Hepatic cirrhosis with portal varices including prominent esophageal varices as well as what appears to be gastric varices with one having the appearance of an active bleed into the medial fundus of the stomach. Pericardial lymphadenopathy. Splenomegaly.
--- NOTE | 2023-01-09 16:05 | ED_ITS ---
HPI - General Adult General Chief complaint: Nausea/Vomiting/Diarrhea Stated complaint: throwing up blood Time Seen by Provider: 01/09/23 18:18 Source: patient Mode of arrival: ambulatory Limitations: no limitations History of Present Illness HPI narrative: Patient is a 62-year-old female who presents emergency department with reports of symptom onset earlier today has had mid upper abdominal pain, nausea, multip le episodes of loose stools, approximately 7 today that are black in nature although she does endorse that she is on iron supplementation. Additionally she had a single episode of a reported large amount of bright red emesis without the presence of clots, this occurred after having outpatient liver ultrasound for further evaluation of fatty liver. 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 she has a history of alcohol use disorder, reports that she drinks 2-3 tall ones of gin and tonic daily, denies any history of withdrawal symptoms or withdrawal seizures. Related Data Home Medications Medication Instructions Recorded Confirmed aspirin 81 mg tablet,delayed 81 mg PO DAILY 11/15/21 01/10/23 release (Adult Low Dose Aspirin) levothyroxine 200 mcg capsule 200 mcg PO DAILY 11/15/21 01/10/23 multivitamin 1 tab PO DAILY 11/15/21 01/10/23 atorvastatin 10 mg tablet 10 mg PO BEDTIME 12/08/22 01/10/23 citalopram 20 mg tablet 20 mg PO DAILY 12/08/22 01/10/23 dulaglutide 1.5 mg/0.5 mL 1.5 mg subcut MO 12/08/22 01/10/23 subcutaneous pen injector (Trulicity) empagliflozin 25 mg tablet 25 mg PO DAILY 12/08/22 01/10/23 (Jardiance) ferrous sulfate 325 mg (65 mg 325 mg PO DAILY 12/08/22 01/10/23 iron) tablet insulin glargine 100 unit/mL (3 40 unit subcut BEDTIME 12/08/22 01/10/23 mL) subcutaneous pen (Lantus Solostar U-100 Insulin) metformin 500 mg tablet,extended 2,000 mg PO BEDTIME 12/08/22 01/10/23 release 24 hr thiamine HCl (vitamin B1) 100 mg 100 mg PO DAILY 12/08/22 01/10/23 tablet (Vitamin B-1) Allergies Allergy/AdvReac Type Severity Reaction Status Date / Time Sulfa (Sulfonamide Allergy Rash Verified 01/09/23 16:10 Antibiotics) Review of Systems Review of Systems: Constitutional : No Weight loss, No Fever, No Chills ENT/Mouth :? No sore throat, No Rhinorrhea Eyes: No Swelling, No Redness Cardiovascular : No Chest Pain, No SOB, No Edema Respiratory : No Cough, No Sputum, No Wheezing Gastrointestinal : Positive Nausea, Positive Vomiting, positive Diarrhea, positive abdominal pain, No Hematochezia, positive Melena, positive hematemesis Genitourinary : No Dysuria, No Urinary Frequency, No Hematuria, No Urgency? Musculoskeletal : No joint pain, No Myalgias, No Joint Swelling Skin : No Skin Lesions, No rash Neuro : No Weakness, No Numbness, No Dizziness, No Headache Psych : No Anxiety/Panic, No Depression Heme/Lymph: No Bruising, No Lymphadenopathy Endocrine : No Polyuria, No Polydipsia Yes all other systems are reviewed and are negative PMFSH Past Medical History Attestation statement: The following information was validated with the patient. Source: old records reviewed Medical History Depression Diabetes Hypothyroid Surgical History S/P rotator cuff repair Social History Social History Alcohol intake: current Alcohol intake frequency: 0-2 drinks per day Alcohol type: hard liquor Patient Tobacco Use Status: Former Tobacco user Smoked in Last 30 Days: No Use of substances other than those prescribed or required for medical reasons: No Advance Directives: No Advance Directives Information Provided: Yes Current occupational status: unemployed Current occupation: rt hand Physical Exam ED Vital Signs: Vital Signs - 24 hr 01/09/23 16:06 01/09/23 16:55 01/09/23 17:53 Temperature 97.9 F 98.1 F 98.4 F Pulse Rate 89 81 82 Respiratory Rate 16 16 16 Blood Pressure 108/42 L 101/37 L 117/48 L Pulse Oximetry 96 93 97 Oxygen Delivery Method Room Air Room Air 01/09/23 20:00 01/09/23 21:52 01/09/23 23:49 Temperature 98.4 F 98.5 F 98.5 F Pulse Rate 87 85 86 Respiratory Rate 16 16 16 Blood Pressure 132/36 L 115/43 L 124/51 L Pulse Oximetry 98 98 95 Oxygen Delivery Method Room Air Room Air Room Air BMI result Body Mass Index 36.0 Appearance: Alert.?Oriented to person, place and time. No acute distres s.?Normal affect. Eyes: Pupils equal, round and reactive to light.? ENT: Pharynx normal.?? Neck: Normal inspection.? Neck supple.?? CVS: Heart sounds normal. Normal heart rate and rhythm.? Pulses normal.?? Respiratory: No respiratory distress.? Lung sounds clear to auscultation bilaterally?? Abdomen: Soft with mild epigastric tenderness upon palpation. Normoactive bowel sounds. Skin: Skin warm and dry.? Skin is pale.? ? Extremities: No lower extremity edema.? Neuro: Moves all extremities spontaneously. Sensation intact bilaterally. No focal neuro deficits. Ambulates with normal steady gait. Course Course Course Narrative: This is a rapid medical exam: Additional HPI, ROS, PE not included below will be deferred to primary provider. Patient is a 62-year-old female with history of anemia, alcohol use disorder, fatty liver disease presenting to the emergency department with complaint of vomiting bright red once today prior to arrival. Has had black stool but is on iron supplements. States she had an abdominal ultrasound today to assess her liver. Reports this morning she had diarrhea. Denies current abdominal pain. Denies fevers. Reports some shortness of breath, denies chest pain. Patient appears pale. Complains of nausea. Plan: EKG, labs including T&S, UA Reevaluation(s) Reevaluation #1: CBC reveals no leukocytosis, a microcytic anemia with hemoglobin 8.5 and hematocrit 30.4. Elevated bilirubin AST and ALT which appears overall consistent with prior labs, lipase is within normal limits. Occult stool positive. CT of the abdomen and pelvis revealing hepatic cirrhosis with portal varices including prominent esophageal varices and likely gastric varices appearance of active bleeding into the medial fundus. Consulted with Gastroenterology on-call; Dr. Randolph who recommends octreotide 100 mcg bolus and octreotide 50 microgram/hour infusion, in addition will give vitamin K 10 mg IV, and 1 unit of PRBCs. spoke with hospitalist, Dr. Jacobson, accepts patient for admission to medicine service Time: 22:59 Medications Administered Discontinued Medications Generic Name Dose Route Start Last Admin Trade Name Edu PRN Reason Stop Dose Admin Phytonadione 10 mg/ Sodium 51 mls @ 51 mls/hr 01/09/23 23:12 01/10/23 01:31 Chloride IV 01/10/23 00:11 51 mls/hr ONCE ONE Administration Sodium Chloride 100 mls @ 100 mls/hr 01/09/23 23:12 01/10/23 00:26 Ns IV 01/10/23 00:11 100 mls/hr ONCE ONE Administration Iohexol 100 ml 01/09/23 19:27 01/09/23 19:27 Iohexol 350 Mg/Ml 100 Ml Infus..Btl IV 01/09/23 19:28 85 ml ONCE ONE Administration Octreotide Acetate 100 mcg 01/09/23 23:09 01/09/23 23:27 Octreotide Acetate 100 Mcg/Ml Ampul IVPUSH 01/09/23 23:10 100 mcg ONCE ONE Administration Ondansetron HCl 4 mg 01/09/23 21:41 01/09/23 21:49 Ondansetron Hcl 4 Mg/2 Ml Vial IVPUSH 01/09/23 21:42 4 mg ONCE ONE Administration Pantoprazole Sodium 40 mg 01/09/23 18:48 01/09/23 20:23 Pantoprazole Sodium 40 Mg/10 Ml Vial IVPUSH 01/09/23 18:49 40 mg ONCE ONE Administration Medical Decision Making Medical Decision Making MDM Narrative: Patient is a 62-year-old female past medical history of anemia, alcohol use disorder, fatty liver disease who presents to the emergency department for evaluation of abdominal pain, melena, and hematemesis as per HPI. At the time my examination she is overall well-appearing, vital signs are stable. She is pale in appearance, without reports of dizziness lightheadedness, chest pain, shortness of breath difficulty breathing. Abdominal examination is overall benign aside from some mild epigastric tenderness upon palpation. No active vomiting at the time of examination. Will obtain CBC to evaluate for leukocytosis/ anemia, CMP and lipase to evaluate for abnormal electrolytes /abnormal renal function/ abnormal hepatic/biliary function, CT of the abdomen and pelvis, and Urinalysis. Differential Diagnosis Differential Diagnoses: The differential diagnosis associated with the presentation includes ( upper GI bleed, varices, lower GI bleed, diverticulitis, PUD) Admission/Observation Consideration of admission/observation: Escalation of care including admission/observation considered ( admitted as noted in course narrative) Consult Healthcare Provider Management of the patient was discussed with: Materials Tech ( Gastroenterology as per course) Lab Data MDM Lab Attestation statement: I reviewed the patient's lab results. (See course narrative) 01/09/23 16:34 01/09/23 16:34 Labs: Lab Results 01/09/23 01/09/23 01/09/23 Range/Units 16:34 16:34 16:34 WBC 8.4 (4.8-10.8) X10*3/uL RBC 3.69 L D (4.20-5.50) X10*6/uL Hgb 8.5 L (12.0-16.0) g/dl Hct 30.4 L D (37.0-47.0) % MCV 82.4 (80.0-98.0) fL MCH 23.0 L (27.0-33.0) pg MCHC 28.0 L (31.0-35.0) g/dl RDW 19.2 H (11.0-16.0) % Plt Count 174 D (160-400) X10*3/uL MPV 10.2 (9.4-12.3) fL Immature Gran % (Auto) 0.2 (0.0-0.4) % Neut % (Auto) 63.1 (45-73) % Lymph % (Auto) 27.0 (20-40) % [place] % (Auto) 8.9 (2-11) % Eos % (Auto) 0.0 (0-4) % Baso % (Auto) 0.8 (0-2) % Lymph # (Auto) 2.3 (1.2-4.9) X10*3/uL [place] # (Auto) 0.7 (0.1-1.2) X10*3/uL Eos # (Auto) 0.0 (0.0-0.4) X10*3/uL Baso # (Auto) 0.1 (0.0-0.2) X10*3/uL Abs Immat Gran (auto) 0.02 (0.00-0.03) X10*3/uL Absolute Neuts (auto) 5.3 (2.0-8.3) x10*3/uL Absolute Nucleated RBC 0.000 (0.0-0.012) X10*3/uL Nucleated RBC % (auto) 0.0 (0.0-0.2) /100WBC PT 14.1 H (11.1-13.3) SEC INR 1.2 H (0.9-1.1) Sodium 137 (135-145) mmol/L Potassium 4.7 (3.3-5.1) mmol/L Chloride 103 (96-108) mmol/L Carbon Dioxide 20 L (22-29) mmol/L Anion Gap 19 (12-20) BUN 27 H (9-16) mg/dL Creatinine 0.82 (0.5-1.4) mg/dL Estim Creat Clear Calc 80.6 Estimated GFR > 60 Random Glucose 309 H (60-115) mg/dL Calcium 9.6 D (8.4-10.2) mg/dL Total Bilirubin 1.3 H (0.0-1.0) mg/dL AST 62 H (5-31) U/L ALT 40 H (0-31) U/L Alkaline Phosphatase 98 (39-117) U/L Troponin I High Sens (<3.5-17.0) ng/L Total Protein 6.8 (6.5-8.0) g/dL Albumin 3.4 L (3.5-5.0) g/dL Lipase 28 (8-78) U/L Urine Color Urine Appearance Urine pH (5.0-9.0) Ur Specific [place] (1.005-1.025) Urine Protein (Neg-Trace) mg/dL Urine Glucose (UA) (Negative) mg/dL Urine Ketones (Negative) mg/dL Urine Blood (Negative) Urine Nitrite (Negative) Ur Leukocyte Esterase (Negative) Urine RBC (0-2) /HPF Urine WBC (0-5) /HPF Ur Squamous Epith Cells (0-2) /HPF Urine Bacteria (None Seen) Hyaline Casts (0-2) /LPF Stool Occult Blood (NEGATIVE) Blood Type Antibody Screen Crossmatch 01/09/23 01/09/23 01/09/23 Range/Units 16:34 16:34 18:36 WBC (4.8-10.8) X10*3/uL RBC (4.20-5.50) X10*6/uL Hgb (12.0-16.0) g/dl Hct (37.0-47.0) % MCV (80.0-98.0) fL MCH (27.0-33.0) pg MCHC (31.0-35.0) g/dl RDW (11.0-16.0) % Plt Count (160-400) X10*3/uL MPV (9.4-12.3) fL Immature Gran % (Auto) (0.0-0.4) % Neut % (Auto) (45-73) % Lymph % (Auto) (20-40) % [place] % (Auto) (2-11) % Eos % (Auto) (0-4) % Baso % (Auto) (0-2) % Lymph # (Auto) (1.2-4.9) X10*3/uL [place] # (Auto) (0.1-1.2) X10*3/uL Eos # (Auto) (0.0-0.4) X10*3/uL Baso # (Auto) (0.0-0.2) X10*3/uL Abs Immat Gran (auto) (0.00-0.03) X10*3/uL Absolute Neuts (auto) (2.0-8.3) x10*3/uL Absolute Nucleated RBC (0.0-0.012) X10*3/uL Nucleated RBC % (auto) (0.0-0.2) /100WBC PT (11.1-13.3) SEC INR (0.9-1.1) Sodium (135-145) mmol/L Potassium (3.3-5.1) mmol/L Chloride (96-108) mmol/L Carbon Dioxide (22-29) mmol/L Anion Gap (12-20) BUN (9-16) mg/dL Creatinine (0.5-1.4) mg/dL Estim Creat Clear Calc Estimated GFR Random Glucose (60-115) mg/dL Calcium (8.4-10.2) mg/dL Total Bilirubin (0.0-1.0) mg/dL AST (5-31) U/L ALT (0-31) U/L Alkaline Phosphatase (39-117) U/L Troponin I High Sens 4.6 D (<3.5-17.0) ng/L Total Protein (6.5-8.0) g/dL Albumin (3.5-5.0) g/dL Lipase (8-78) U/L Urine Color Yellow Urine Appearance Clear Urine pH 5.5 (5.0-9.0) Ur Specific [place] >= 1.030 H (1.005-1.025) Urine Protein Negative (Neg-Trace) mg/dL Urine Glucose (UA) >=1000 H (Negative) mg/dL Urine Ketones 15 (Negative) mg/dL Urine Blood Negative (Negative) Urine Nitrite Negative (Negative) Ur Leukocyte Esterase Negative (Negative) Urine RBC 0-2 (0-2) /HPF Urine WBC 0-5 (0-5) /HPF Ur Squamous Epith Cells 0-2 (0-2) /HPF Urine Bacteria None Seen (None Seen) Hyaline Casts 3-5 (0-2) /LPF Stool Occult Blood (NEGATIVE) Blood Type B Positive Antibody Screen NEGATIVE Crossmatch See Detail 01/09/23 Range/Units 21:45 WBC (4.8-10.8) X10*3/uL RBC (4.20-5.50) X10*6/uL Hgb (12.0-16.0) g/dl Hct (37.0-47.0) % MCV (80.0-98.0) fL MCH (27.0-33.0) pg MCHC (31.0-35.0) g/dl RDW (11.0-16.0) % Plt Count (160-400) X10*3/uL MPV (9.4-12.3) fL Immature Gran % (Auto) (0.0-0.4) % Neut % (Auto) (45-73) % Lymph % (Auto) (20-40) % [place] % (Auto) (2-11) % Eos % (Auto) (0-4) % Baso % (Auto) (0-2) % Lymph # (Auto) (1.2-4.9) X10*3/uL [place] # (Auto) (0.1-1.2) X10*3/uL Eos # (Auto) (0.0-0.4) X10*3/uL Baso # (Auto) (0.0-0.2) X10*3/uL Abs Immat Gran (auto) (0.00-0.03) X10*3/uL Absolute Neuts (auto) (2.0-8.3) x10*3/uL Absolute Nucleated RBC (0.0-0.012) X10*3/uL Nucleated RBC % (auto) (0.0-0.2) /100WBC PT (11.1-13.3) SEC INR (0.9-1.1) Sodium (135-145) mmol/L Potassium (3.3-5.1) mmol/L Chloride (96-108) mmol/L Carbon Dioxide (22-29) mmol/L Anion Gap (12-20) BUN (9-16) mg/dL Creatinine (0.5-1.4) mg/dL Estim Creat Clear Calc Estimated GFR Random Glucose (60-115) mg/dL Calcium (8.4-10.2) mg/dL Total Bilirubin (0.0-1.0) mg/dL AST (5-31) U/L ALT (0-31) U/L Alkaline Phosphatase (39-117) U/L Troponin I High Sens (<3.5-17.0) ng/L Total Protein (6.5-8.0) g/dL Albumin (3.5-5.0) g/dL Lipase (8-78) U/L Urine Color Urine Appearance Urine pH (5.0-9.0) Ur Specific [place] (1.005-1.025) Urine Protein (Neg-Trace) mg/dL Urine Glucose (UA) (Negative) mg/dL Urine Ketones (Negative) mg/dL Urine Blood (Negative) Urine Nitrite (Negative) Ur Leukocyte Esterase (Negative) Urine RBC (0-2) /HPF Urine WBC (0-5) /HPF Ur Squamous Epith Cells (0-2) /HPF Urine Bacteria (None Seen) Hyaline Casts (0-2) /LPF Stool Occult Blood POSITIVE (NEGATIVE) Blood Type Antibody Screen Crossmatch Independent Interpretation I performed an independent interpretation of an: EKG Interpretation: Rate: 83 Rhythm:? Normal sinus rhythm Normal P waves.? Normal ROLLY.?? Normal QRS complex.?? ST T wave :??No ST elevation, no ST depression, T-wave inversion in III qTC: 495 prior studies:? November 2022 The study has been interpreted contemporaneously by me. Radiology Impression Discussion of test interpretation with radiology: I have reviewed the radiologist's reading. Radiologist Impression: CT/CT gi bleed abd pel wo/w IVcon IMPRESSION: Hepatic cirrhosis with portal varices including prominent esophageal varices as well as what appears to be gastric varices with one having the appearance of an active bleed into the medial fundus of the stomach. ? Pericardial lymphadenopathy. ? Splenomegaly. Critical Care Time Critical Care Time Critical Care Time: Yes Total Critical Care Time: 45 Attestation: I personally attest to this critical care time spent taking care of the patient exclusive of all other billable procedures was approximately 45 minutes including initial evaluation of patient, ordering tests, x-ray interpretation, EKG interpretation, medical consultation, documentation, re-evaluation. Discharge Plan Discharge Clinical Impression: Acute upper gastrointestinal bleeding, Esophageal varices, Gastric varices, Cirrhosis Patient Disposition: Admitted As Inpatient
[2023-01-09 16:06] VITALS: BP 108/42; PULSE 89; RESP 16; TEMP 36.6; O2SAT 96; BMI 36.0
--- NOTE | 2023-01-09 16:09 | ECG_ITS ---
Test Reason : vomiting Blood Pressure : / mmHG Vent. Rate : 083 BPM Atrial Rate : 083 BPM P-R Int : 142 ms QRS Dur : 082 ms QT Int : 422 ms P-R-T Axes : 027 003 006 degrees QTc Int : 495 ms Normal sinus rhythm Moderate voltage criteria for LVH, may be normal variant ( R in aVL , Romain product ) Inferior infarct , age undetermined Abnormal ECG When compared with ECG of 08-DEC-2022 13:08, Inferior infarct is now Present Inverted T waves have replaced nonspecific T wave abnormality in Inferior leads Referred By: Eleonora Hines Electronically Signed By:YUE MARTIN MD
[2023-01-09 16:41] LABS: MANUAL DIFF FLAG NO
[2023-01-09 16:42] LABS: Basophils Absolute Auto 0.1 X10*3/uL (0.0-0.2); Basophils Percent Auto 0.8 % (0-2); Hematocrit 30.4 % (37.0-47.0); Hemoglobin 8.5 g/dl (12.0-16.0); Imm Gran Abs Auto 0.02 X10*3/uL (0.00-0.03); Imm Gran Pct Auto 0.2 % (0.0-0.4); Lymphocytes Absolute Auto 2.3 X10*3/uL (1.2-4.9); Mean Corpuscular Volume 82.4 fL (80.0-98.0); Mean Platelet Volume 10.2 fL (9.4-12.3); Monocytes Absolute Auto 0.7 X10*3/uL (0.1-1.2); Monocytes Percent Auto 8.9 % (2-11); Neutrophils Absolute Auto 5.3 x10*3/uL (2.0-8.3); Neutrophils Percent Auto 63.1 % (45-73); Platelet Count 174 X10*3/uL (160-400); Red Blood Count 3.69 X10*6/uL (4.20-5.50); Red Cell Distribution Width 19.2 % (11.0-16.0); White Blood Count 8.4 X10*3/uL (4.8-10.8)
[2023-01-09 16:55] VITALS: BP 101/37; PULSE 81; RESP 16; TEMP 36.7; O2SAT 93
[2023-01-09 17:02] LABS: Alanine Aminotransferase 40 U/L (0-31); Albumin Level 3.4 g/dL (3.5-5.0); Alkaline Phosphatase 98 U/L (39-117); Anion Gap 19 (12-20); Aspartate Amino Transferase 62 U/L (5-31); Bilirubin Total 1.3 mg/dL (0.0-1.0); Blood Urea Nitrogen 27 mg/dL (9-16); Calcium 9.6 mg/dL (8.4-10.2); Carbon Dioxide 20 mmol/L (22-29); Chloride 103 mmol/L (96-108); Creatinine Clr Calc Pharmacy 80.6; Estimated Glomerular Filt Rate > 60; Glucose Random 309 mg/dL (60-115); Lipase 28 U/L (8-78); Potassium 4.7 mmol/L (3.3-5.1); Sodium 137 mmol/L (135-145); Total Protein 6.8 g/dL (6.5-8.0)
[2023-01-09 17:08] LABS: INTERNATIONAL NORM RATIO 1.2 (0.9-1.1); Prothrombin Time 14.1 SEC (11.1-13.3)
[2023-01-09 17:09] LABS: Troponin-I High Sensitivity 4.6 ng/L (<3.5-17.0)
[2023-01-09 17:53] VITALS: BP 117/48; PULSE 82; RESP 16; TEMP 36.9; O2SAT 97
[2023-01-09 18:42] LABS: Appearance Urine Clear; Color Urine Yellow; Glucose Urine UA >=1000 mg/dL (Negative); Leukocyte Esterase Urine Negative (Negative); Nitrite Urine Negative (Negative); PH 5.5 (5.0-9.0); Specific Gravity - Urine >= 1.030 (1.005-1.025); UMIC TRIGGER UACC YES; Urine Blood Negative (Negative); Urine Ketones 15 mg/dL (Negative); Urine Protein Negative (Neg-Trace)
[2023-01-09 18:59] LABS: Bacteria Urine None Seen (None Seen); RBC Urine 0-2 /HPF (0-2); Squamous Epithelial Cell Urine 0-2 /HPF (0-2); WBC Urine 0-5 /HPF (0-5)
[2023-01-09] MEDS: iohexoL 350 MG/ML 100 ML INFUS..BTL IV (19:27)
[2023-01-09 20:00] VITALS: BP 132/36; PULSE 87; RESP 16; TEMP 36.9; O2SAT 98
[2023-01-09] MEDS: Pantoprazole Sodium 40 MG/10 ML VIAL IVPUSH (20:23)
[2023-01-09] MEDS: ondansetron HCL 4 MG/2 ML VIAL IVPUSH (21:49)
[2023-01-09 21:52] VITALS: BP 115/43; PULSE 85; RESP 16; TEMP 36.9; O2SAT 98
[2023-01-09 22:01] LABS: OBS Int Ctl Valid YES; OBS1 POSITIVE (NEGATIVE)
[2023-01-09] MEDS: Octreotide Acetate 100 MCG/ML AMPUL IVPUSH (23:27)
[2023-01-09 23:49] VITALS: BP 124/51; PULSE 86; RESP 16; TEMP 36.9; O2SAT 95
[2023-01-10] VITALS (17 sets, daily range): BP systolic 109–164; BP diastolic 46–61; PULSE 70–812; RESP 14–20; TEMP 36.4–37.2; O2SAT 94–97; BMI 35.8
--- NOTE | 2023-01-10 00:26 | P.HPHOSP_ITS ---
History of Present Illness Date of Service: 01/09/23 Chief Complaint: Hemoptysis 62-year-old female past medical history of diabetes, hypothyroidism, depression, and reports fatty liver disease comes into the hospital with complaints of episode of hemoptysis. She states that she has been doing well, but had 1 epi sode of hemoptysis today. She reports epigastric abdominal pain, but no previous similar episode. Denies any chest pain, no shortness of breath. She also noticed black tarry stools today and has had diarrhea for the past 1 year. She reports no urinary symptoms. She does report that she drinks 2-3 tall ones on gin and tonic nightly for past 2 yrs. denies hx of withdrwwal While in the ED she also had another 1 episode hemoptysis. On arrival to the ED patient hemodynamically stable Labs are significant for WBC count of 8.4, hemoglobin of 8.5 with a baseline around 7 in November, hematocrit 30.4, INR of 1.2, BUN of 27, total bili of 1.3, AST of 62, ALT of 40, troponin 4.6, UA negative, stool occult positive CT pelvic abdomen shows hepatic cirrhosis with portal varices including promin ent esophageal varices as well as what appears to be gastric varices with 1 having the appearance of an active bleed into the medial fundus of the stomach This was discussed with Gastroenterology, patient started on octreotide, given vitamin K, as well as being transfuse 2 units of PRBC will be admitted for further management pt will be admitted for further management Review of Systems Review of Systems: Yes all other systems are reviewed and are negative [facility] Medical History Depression Diabetes Hypothyroid Surgical History S/P rotator cuff repair Social History Household Members: Family Housing: House Do you presently have visiting nurse or other home services: No Alcohol intake: current Alcohol intake frequency: 0-2 drinks per day Alcohol type: hard liquor Patient Tobacco Use Status: Former Tobacco user Smoked in Last 30 Days: No Use of substances other than those prescribed or required for medical reasons: No Currently Displaying Signs/Symptoms of Drug Intoxication Withdrawal: No Any prior treatment program specific to substance use: No Have you been hit, kicked, punched, or otherwise hurt by someone within the past year? If so, by whom?: No Do you feel safe in your current relationship?: Yes Is there a partner from a previous relationship who is making you feel unsafe now?: No Are you made to feel afraid or neglected: No Advance Directives: No Advance Directives Information Provided: Yes Do you have thoughts of harming others: None Do you have a plan to hurt others: No Plan Recently lost weight without trying: Yes How much weight loss: 2-13 pounds Eating poorly because of decreased appetite: No Nutrition screen score: 3 Nutrition Risks: No Nutritional Risk Patient : No : No Poor oral hygiene: No Current occupational status: unemployed Current occupation: rt hand Meds Allergies Allergy/AdvReac Type Severity Reaction Status Date / Time Sulfa (Sulfonamide Allergy Rash Verified 01/09/23 16:10 Antibiotics) Active Medications: Current Medications Octreotide Acetate 500 mcg/ (Sodium Chloride) 501 mls @ 50.1 mls/hr IVCONT .Q10H JESSICA Ondansetron HCl (Ondansetron Hcl 4 Mg/2 Ml Vial) 4 mg IVPUSH Q8H PRN PRN Reason: Nausea and Vomiting Home Medications Medication Instructions Recorded Confirmed Last Taken Type aspirin 81 mg tablet,delayed 81 mg PO DAILY 11/15/21 01/10/23 12/08/22 History release (Adult Low Dose Aspirin) levothyroxine 200 mcg capsule 200 mcg PO DAILY 11/15/21 01/10/23 12/08/22 History multivitamin 1 tab PO DAILY 11/15/21 01/10/23 12/08/22 History atorvastatin 10 mg tablet 10 mg PO BEDTIME 12/08/22 01/10/23 12/07/22 History citalopram 20 mg tablet 20 mg PO DAILY 12/08/22 01/10/23 12/08/22 History dulaglutide 1.5 mg/0.5 mL 1.5 mg subcut MO 12/08/22 01/10/23 12/01/22 History subcutaneous pen injector (Trulicity) empagliflozin 25 mg tablet 25 mg PO DAILY 12/08/22 01/10/23 12/08/22 History (Jardiance) ferrous sulfate 325 mg (65 mg 325 mg PO DAILY 12/08/22 01/10/23 12/08/22 History iron) tablet insulin glargine 100 unit/mL (3 40 unit subcut BEDTIME 12/08/22 01/10/23 12/07/22 History mL) subcutaneous pen (Lantus Solostar U-100 Insulin) metformin 500 mg tablet,extended 2,000 mg PO BEDTIME 12/08/22 01/10/23 12/07/22 History release 24 hr thiamine HCl (vitamin B1) 100 mg 100 mg PO DAILY 12/08/22 01/10/23 12/08/22 History tablet (Vitamin B-1) Physical Exam Vital Signs and Narrative: Vital Signs: Last Vital Signs Temp 98.5 F 01/09/23 23:49 Pulse 86 01/09/23 23:49 Resp 16 01/09/23 23:49 BP 124/51 L 01/09/23 23:49 Pulse Ox 95 01/09/23 23:49 O2 Del Method Room Air 01/09/23 23:49 BMI result Body Mass Index 36.0 Results Labs 01/09/23 16:34 01/09/23 16:34 Labs: Laboratory Results - last 24 hr 01/09/23 01/09/23 01/09/23 16:34 16:34 16:34 MCV 82.4 MCH 23.0 L MCHC 28.0 L RDW 19.2 H Plt Count 174 D MPV 10.2 Immature Gran % (Auto) 0.2 Neut % (Auto) 63.1 Lymph % (Auto) 27.0 [place] % (Auto) 8.9 Eos % (Auto) 0.0 Baso % (Auto) 0.8 Lymph # (Auto) 2.3 [place] # (Auto) 0.7 Eos # (Auto) 0.0 Baso # (Auto) 0.1 Abs Immat Gran (auto) 0.02 Absolute Neuts (auto) 5.3 Absolute Nucleated RBC 0.000 Nucleated RBC % (auto) 0.0 PT 14.1 H INR 1.2 H Anion Gap 19 Estim Creat Clear Calc 80.6 Estimated GFR > 60 Random Glucose 309 H Calcium 9.6 D Total Bilirubin 1.3 H AST 62 H ALT 40 H Alkaline Phosphatase 98 Total Protein 6.8 Albumin 3.4 L Lipase 28 Urine Color Urine Appearance Urine pH Ur Specific [place] Urine Protein Urine Glucose (UA) Urine Ketones Urine Blood Urine Nitrite Ur Leukocyte Esterase Urine RBC Urine WBC Ur Squamous Epith Cells Urine Bacteria Hyaline Casts Stool Occult Blood Blood Type Antibody Screen Crossmatch 01/09/23 01/09/23 01/09/23 16:34 18:36 21:45 MCV MCH MCHC RDW Plt Count MPV Immature Gran % (Auto) Neut % (Auto) Lymph % (Auto) [place] % (Auto) Eos % (Auto) Baso % (Auto) Lymph # (Auto) [place] # (Auto) Eos # (Auto) Baso # (Auto) Abs Immat Gran (auto) Absolute Neuts (auto) Absolute Nucleated RBC Nucleated RBC % (auto) PT INR Anion Gap Estim Creat Clear Calc Estimated GFR Random Glucose Calcium Total Bilirubin AST ALT Alkaline Phosphatase Total Protein Albumin Lipase Urine Color Yellow Urine Appearance Clear Urine pH 5.5 Ur Specific [place] >= 1.030 H Urine Protein Negative Urine Glucose (UA) >=1000 H Urine Ketones 15 Urine Blood Negative Urine Nitrite Negative Ur Leukocyte Esterase Negative Urine RBC 0-2 Urine WBC 0-5 Ur Squamous Epith Cells 0-2 Urine Bacteria None Seen Hyaline Casts 3-5 Stool Occult Blood POSITIVE Blood Type B Positive Antibody Screen NEGATIVE Crossmatch See Detail Imaging Radiologist's Impressions: Impressions Abdomen/Pelvis CT 01/09/23 19:49 IMPRESSION: Hepatic cirrhosis with portal varices including prominent esophageal varices as well as what appears to be gastric varices with one having the appearance of an active bleed into the medial fundus of the stomach. Pericardial lymphadenopathy. Splenomegaly. Assessment and Plan (1) Acute upper gastrointestinal bleeding: Status: Acute (2) Esophageal varices: Status: Acute (3) Gastric varices: Status: Acute (4) Cirrhosis: Status: Acute (5) Acute on chronic anemia: Status: Acute (6) Anemia due to GI blood loss: Status: Acute Plan This is a 62-year-old female past medical history of alcohol abuse, and fatty liver comes into the hospital with complaints of hemoptysis # acute hemoptysis - secondary to upper gastrointestinal bleeding in the setting of esophageal and gastric varices seen on CT scan - hemodynamically stable - has acute on chronic anemia - patient being transfused 2 units of PRBC as well as vitamin K, will be placed on octreotide, ceftriaxone - GI consulted - NPO - admit to telemetry # esophageal varices, gastric varices, liver cirrhosis - likely multifactorial cirrhosis secondary to alcohol abuse as well as history of fatty liver per patient - octreotide started, prophylactic ceftriaxone, GI consulted # acute on chronic anemia - appears to have chronic anemia, with worsening hemoglobin due to GI bleed - transfused unit of PRBC - INR of 1.2 - follow CBC # history of alcohol abuse - will place on CIWa - no withdrawal symptoms at this time - folic and thiamine acid once able to take p.o. medications # hypothyroidism - continue levothyroxine # diabetes - hold oral antihyperglycemics - continue home insulin - add low-dose sliding scale insulin - diabetic diet DVT prophylaxis: SCDs Given patient's acute bleed, patient require minimum 2 nights inpatient hospital stay for further management and monitoring Time Spent With Patient Time: Total time managing care of this patient today ____ minutes. Quality Stroke Does the patient have a stroke diagnosis?: No VTE Prior VTE?: No VTE Risk Level:: Medical - moderate - high VTE Device Contraindication: N/A - Device Ordered VTE Drug Contraindication: Treatment Not Indicated
[2023-01-10 00:44] LABS: MANUAL DIFF FLAG NO
[2023-01-10 00:52] LABS: Basophils Absolute Auto 0.1 X10*3/uL (0.0-0.2); Basophils Percent Auto 0.6 % (0-2); Hemoglobin 7.4 g/dl (12.0-16.0); Imm Gran Abs Auto 0.04 X10*3/uL (0.00-0.03); Imm Gran Pct Auto 0.4 % (0.0-0.4); Lymphocytes Percent Auto 28.8 % (20-40); Mean Corpuscular HGB Conc 28.5 g/dl (31.0-35.0); Mean Corpuscular Volume 80.7 fL (80.0-98.0); Mean Platelet Volume 9.6 fL (9.4-12.3); Monocytes Percent Auto 9.7 % (2-11); Neutrophils Absolute Auto 6.2 x10*3/uL (2.0-8.3); Neutrophils Percent Auto 60.5 % (45-73); Platelet Count 132 X10*3/uL (160-400); Red Blood Count 3.22 X10*6/uL (4.20-5.50); Red Cell Distribution Width 19.5 % (11.0-16.0); White Blood Count 10.3 X10*3/uL (4.8-10.8)
--- NOTE | 2023-01-10 01:19 | PC.NURSE ---
Patient is alert and oriented x5. VSS. Patient denies any pain at present. Patient had 1 episode of vomiting- moderate amount of red, brownish blood without clots following administration of IV push Octeotide. VSS. Dr. Jacobson notified. Blood transfusion of 1qunit of PRBC initiated, patient tolerating well, no s/s of adverse reactions noted.
[2023-01-10] MEDS: Phytonadione (Vit K1) 10 MG in 0.9 % Sodium Chloride 50 ML 51 MG IV (01:31)
[2023-01-10] MEDS: Octreotide Acetate 500 MCG in 0.9 % Sodium Chloride 500 ML 50.1 MCG IVCONT ×3 (01:40→20:59)
[2023-01-10 02:00] LABS: MANUAL DIFF FLAG NO
[2023-01-10 02:02] LABS: Basophils Absolute Auto 0.1 X10*3/uL (0.0-0.2); Basophils Percent Auto 0.5 % (0-2); Hematocrit 27.5 % (37.0-47.0); Hemoglobin 8.3 g/dl (12.0-16.0); Imm Gran Abs Auto 0.04 X10*3/uL (0.00-0.03); Imm Gran Pct Auto 0.4 % (0.0-0.4); Lymphocytes Absolute Auto 2.2 X10*3/uL (1.2-4.9); Lymphocytes Percent Auto 24.1 % (20-40); Mean Corpuscular HGB Conc 30.2 g/dl (31.0-35.0); Mean Corpuscular Hemoglobin 24.5 pg (27.0-33.0); Mean Corpuscular Volume 81.1 fL (80.0-98.0); Mean Platelet Volume 9.7 fL (9.4-12.3); Monocytes Absolute Auto 0.8 X10*3/uL (0.1-1.2); Monocytes Percent Auto 8.7 % (2-11); Neutrophils Percent Auto 66.3 % (45-73); Platelet Count 117 X10*3/uL (160-400); Red Blood Count 3.39 X10*6/uL (4.20-5.50); White Blood Count 9.1 X10*3/uL (4.8-10.8)
--- NOTE | 2023-01-10 02:09 | PC.NURSE ---
Nurse to nurse report given to Alexey Suazo [facility]. Patient to be transported to [id number] by manufacturing maintenance technician.
[2023-01-10] MEDS: 0.9 % Sodium Chloride Flush 3 ML SYRINGE IVFLUSH ×3 (02:58→20:28)
[2023-01-10] MEDS: Pantoprazole Sodium 40 MG/10 ML VIAL IVPUSH ×2 (06:13→17:05)
--- NOTE | 2023-01-10 07:34 | PHA.MEDREC ---
Pharmacy Consult ? Medication Reconciliation Pharmacy has reviewed the medication reconciliation done by the RN. Edited and added some medications, List from [facility]
[2023-01-10 08:06] LABS: Glucose, Whole Blood 193 mg/dL (60-115)
[2023-01-10] MEDS: cefTRIAXone sodium 1 GM in 0.9 % Sodium Chloride 50 ML IV (08:08)
[2023-01-10 09:10] LABS: MANUAL DIFF FLAG NO
[2023-01-10 09:15] LABS: Basophils Absolute Auto 0.1 X10*3/uL (0.0-0.2); Basophils Percent Auto 0.7 % (0-2); Eosinophils Percent Auto 0.1 % (0-4); Hematocrit 29.4 % (37.0-47.0); Imm Gran Abs Auto 0.01 X10*3/uL (0.00-0.03); Imm Gran Pct Auto 0.1 % (0.0-0.4); Lymphocytes Absolute Auto 2.3 X10*3/uL (1.2-4.9); Lymphocytes Percent Auto 25.9 % (20-40); Mean Corpuscular HGB Conc 30.6 g/dl (31.0-35.0); Mean Corpuscular Hemoglobin 25.3 pg (27.0-33.0); Mean Corpuscular Volume 82.6 fL (80.0-98.0); Mean Platelet Volume 9.8 fL (9.4-12.3); Neutrophils Absolute Auto 5.4 x10*3/uL (2.0-8.3); Neutrophils Percent Auto 62.2 % (45-73); Platelet Count 106 X10*3/uL (160-400); Red Blood Count 3.56 X10*6/uL (4.20-5.50); Red Cell Distribution Width 18.4 % (11.0-16.0); White Blood Count 8.7 X10*3/uL (4.8-10.8)
[2023-01-10 09:30] LABS: Alanine Aminotransferase 31 U/L (0-31); Albumin Level 3.1 g/dL (3.5-5.0); Alkaline Phosphatase 81 U/L (39-117); Anion Gap 14 (12-20); Aspartate Amino Transferase 47 U/L (5-31); Bilirubin Total 2.2 mg/dL (0.0-1.0); Blood Urea Nitrogen 29 mg/dL (9-16); Calcium 8.7 mg/dL (8.4-10.2); Carbon Dioxide 22 mmol/L (22-29); Chloride 106 mmol/L (96-108); Creatinine Clr Calc Pharmacy 95.5; Estimated Glomerular Filt Rate > 60; Glucose Random 202 mg/dL (60-115); Potassium 4.3 mmol/L (3.3-5.1); Sodium 138 mmol/L (135-145); Total Protein 6.1 g/dL (6.5-8.0)
[2023-01-10 11:25] LABS: Glucose, Whole Blood 189 mg/dL (60-115)
--- NOTE | 2023-01-10 13:49 | MHC.SHP ---
Pre-Procedural Eval Section A Date of Service: 01/10/23 The patient is an INPATIENT: Yes The History & Physical has been completed within 30 days and I have reviewed it.: Yes Section B Chief Complaint: Upper GI Bleed Allergies: Allergies Allergy/AdvReac Type Severity Reaction Status Date / Time Sulfa (Sulfonamide Allergy Rash Verified 01/09/23 16:10 Antibiotics) Plan I have reviewed the history and physical and performed a pertinent physical examination on my patient. No changes have occurred unless specified. Time Spent With Patient Time: Total time managing care of this patient today ____ minutes.
--- NOTE | 2023-01-10 13:50 | PM.EVENT ---
Event Note Date of Service: 01/10/23 Event Note: GI Consult-Full note dictated-History from patient, , RN, and EMR Imp: UGI bleed in a 62 yo female with reported cirrhosis due to fatty liver and EtOH. She last had EtOH as of yesterday. She describes melena all day yesterday and then a couple of episodes of hematemesis. She denies any history of GI bleeding like this but has had anemia earlier this year requiring transfusions. She has not had any signs of bleeding today, nor any N/V or BM's today. She reports a negative colonoscopy 10 years ago and does not not think she has ever had an upper endoscopy. She is actually scheduled for an elective outpatient EGD and Colonoscopy with Dr. Adam at [facility] for later this week. She does use one Aspirin 81mg daily but denies any NSAIDs nor tobacco. Her CT from yesterday in the ER showed possible bleeding from a gastric varix. Diff dx: UGI bleed due to esophageal or gastric varices, PUD, portal gastropathy, Kristan-Randolph tear, etc. Rec: EGD today. Full consent obtained from her for this, including risks of bleeding, perforation, aspiration, and potential need for transfer to a tertiary hospital for a TIPS. Continue IV Sandostain and PPI. F/U labs closely. D/W patient and her in detail. They are comfortable with this plan. Thanks. Time Spent With Patient Time: Total time managing care of this patient today ____ minutes.
--- NOTE | 2023-01-10 14:26 | HO.ANESPROP2 ---
HPI - Anesthesia Eval Consult details Narrative: Hemoptysis, acute on chronic anemia PMFSH Active Problems Active Problems: All Active Problems (Updated 01/10/23 @ 06:28 by Bess Jacobson MD) Anemia due to GI blood loss (Acute) Acute on chronic anemia (Acute) Acute upper gastrointestinal bleeding (Acute) Esophageal varices (Acute) Gastric varices (Acute) Cirrhosis (Acute) Left humeral fracture (Acute) Fall (Acute) Fracture, humerus (Acute) Alcohol abuse (Acute) Past Medical History Medical History Depression Diabetes Hypothyroid Family History Family history of problems with anesthesia: No Surgical History Surgical History S/P rotator cuff repair History of Problems with Anesthesia: No Social History Social History Household Members: Family Housing: House Do you presently have visiting nurse or other home services: No Alcohol intake: current Alcohol intake frequency: 0-2 drinks per day Alcohol type: hard liquor Patient Tobacco Use Status: Former Tobacco user Smoked in Last 30 Days: No Use of substances other than those prescribed or required for medical reasons: No Currently Displaying Signs/Symptoms of Drug Intoxication Withdrawal: No Any prior treatment program specific to substance use: No Have you been hit, kicked, punched, or otherwise hurt by someone within the past year? If so, by whom?: No Do you feel safe in your current relationship?: Yes Is there a partner from a previous relationship who is making you feel unsafe now?: No Are you made to feel afraid or neglected: No Advance Directives: No Advance Directives Information Provided: Yes Do you have thoughts of harming others: None Do you have a plan to hurt others: No Plan Recently lost weight without trying: Yes How much weight loss: 2-13 pounds Eating poorly because of decreased appetite: No Nutrition screen score: 3 Nutrition Risks: No Nutritional Risk Patient : No : No Poor oral hygiene: No Current occupational status: unemployed Current occupation: rt hand Meds Allergies Allergy/AdvReac Type Severity Reaction Status Date / Time Sulfa (Sulfonamide Allergy Rash Verified 01/09/23 16:10 Antibiotics) Active Medications: Current Medications Acetaminophen (Acetaminophen Supp 650 Mg Supp.Rect) 650 mg MO Q6H PRN PRN Reason: Pain, Mild (Pain Scale 1-3) Atorvastatin Calcium (Atorvastatin Calcium 10 Mg Tablet) 10 mg PO BEDTIME [facility] Dextrose (Dextrose 50 % 25 Gm/50 Ml Syringe) 25 gm IVPUSH Q15M PRN; Protocol PRN Reason: per Hypoglycemia Standing Ord. Escitalopram Oxalate (Escitalopram Oxalate 20 Mg Tablet) 20 mg PO DAILY [facility] Last Admin: 01/10/23 08:22 Dose: Not Given Glucose (Glucose Gel 15 Gm Gel..Gram.) 15 gm PO Q15M PRN; Protocol PRN Reason: per Hypoglycemia Standing Ord. Octreotide Acetate 500 mcg/ (Sodium Chloride) 501 mls @ 50.1 mls/hr IVCONT .Q10H [facility] Last Admin: 01/10/23 09:39 Dose: 50 mcg/hr, 50.1 mls/hr Ceftriaxone Sodium 1 gm/ (Sodium Chloride) 50 mls @ 100 mls/hr IV Q24H [facility] Last Infusion: 01/10/23 09:38 Dose: Infused Insulin Glargine (Insulin Glargine,Hum.Rec.Anlog 100 Unit/Ml 10 Ml Vial) 40 unit SUBCUT BEDTIME [facility] Insulin Human Lispro (Insulin Lispro 100 Unit/Ml 3 Ml Vial) 0 unit SUBCUT QIDACHS [facility]; Protocol Last Admin: 01/10/23 12:21 Dose: Not Given Levothyroxine Sodium (Levothyroxine Sodium 200 Mcg Tablet) 200 mcg PO DAILY@0630 [facility] Last Admin: 01/10/23 08:22 Dose: Not Given Multivitamins/Vitamin C (Multivitamin Tablet) 1 tab PO DAILY [facility] Last Admin: 01/10/23 08:23 Dose: Not Given Ondansetron HCl (Ondansetron Hcl 4 Mg/2 Ml Vial) 4 mg IVPUSH Q8H PRN PRN Reason: Nausea and Vomiting Pantoprazole Sodium (Pantoprazole Sodium 40 Mg/10 Ml Vial) 40 mg IVPUSH BID@0630,1630 [facility] Last Admin: 01/10/23 06:13 Dose: 40 mg Sodium Chloride (0.9 % Sodium Chloride Flush 3 Ml Syringe) 3 ml IVFLUSH QSHIFT [facility] Last Admin: 01/10/23 02:58 Dose: 3 ml Thiamine HCl (Thiamine Hcl 100 Mg Tablet) 100 mg PO DAILY [facility] Last Admin: 01/10/23 08:23 Dose: Not Given Home Medications Medication Instructions Recorded Confirmed Last Taken Type aspirin 81 mg tablet,delayed 81 mg PO DAILY 11/15/21 01/10/23 12/08/22 History release (Adult Low Dose Aspirin) levothyroxine 200 mcg capsule 200 mcg PO DAILY 11/15/21 01/10/23 12/08/22 History multivitamin 1 tab PO DAILY 11/15/21 01/10/23 12/08/22 History atorvastatin 10 mg tablet 10 mg PO BEDTIME 12/08/22 01/10/23 12/07/22 History dulaglutide 1.5 mg/0.5 mL 1.5 mg subcut MO 12/08/22 01/10/23 12/01/22 History subcutaneous pen injector (Trulicity) empagliflozin 25 mg tablet 25 mg PO DAILY 12/08/22 01/10/23 12/08/22 History (Jardiance) ferrous sulfate 325 mg (65 mg 325 mg PO DAILY 12/08/22 01/10/23 12/08/22 History iron) tablet insulin glargine 100 unit/mL (3 40 unit subcut BEDTIME 12/08/22 01/10/23 12/07/22 History mL) subcutaneous pen (Lantus Solostar U-100 Insulin) metformin 500 mg tablet,extended 2,000 mg PO BEDTIME 12/08/22 01/10/23 12/07/22 History release 24 hr thiamine HCl (vitamin B1) 100 mg 100 mg PO DAILY 12/08/22 01/10/23 12/08/22 History tablet (Vitamin B-1) escitalopram oxalate 20 mg tablet 20 mg PO DAILY 01/10/23 01/10/23 Unknown History insulin lispro 100 unit/mL 15 unit subcut TID 01/10/23 01/10/23 Unknown History subcutaneous pen (Humalog KwikPen (U-100) Insulin) Exam Exam Date and Time: January 10, 2023 142 Height,Weight and Vital Signs: Height 5 ft 4 in Weight 94.6 kg Last Vital Signs Temp 97.8 F 01/10/23 11:33 Pulse 73 01/10/23 11:33 Resp 16 01/10/23 11:33 BP 137/54 L 01/10/23 11:33 Pulse Ox 96 01/10/23 11:33 O2 Del Method Room Air 01/10/23 11:33 Pertinent Lab Results Pertinent Lab Results: Laboratory Tests 01/09/23 01/09/23 01/09/23 16:34 16:34 16:34 WBC 8.4 RBC 3.69 L D Hgb 8.5 L Hct 30.4 L D MCV 82.4 MCH 23.0 L MCHC 28.0 L RDW 19.2 H Plt Count 174 D MPV 10.2 Immature Gran % (Auto) 0.2 Neut % (Auto) 63.1 Lymph % (Auto) 27.0 [place] % (Auto) 8.9 Eos % (Auto) 0.0 Baso % (Auto) 0.8 Lymph # (Auto) 2.3 [place] # (Auto) 0.7 Eos # (Auto) 0.0 Baso # (Auto) 0.1 Abs Immat Gran (auto) 0.02 Absolute Neuts (auto) 5.3 Absolute Nucleated RBC 0.000 Nucleated RBC % (auto) 0.0 PT 14.1 H INR 1.2 H Sodium 137 Potassium 4.7 Chloride 103 Carbon Dioxide 20 L Anion Gap 19 BUN 27 H Creatinine 0.82 Estim Creat Clear Calc 80.6 Estimated GFR > 60 POC Glucose Random Glucose 309 H Calcium 9.6 D Total Bilirubin 1.3 H AST 62 H ALT 40 H Alkaline Phosphatase 98 Troponin I High Sens Total Protein 6.8 Albumin 3.4 L Lipase 28 Urine Color Urine Appearance Urine pH Ur Specific [place] Urine Protein Urine Glucose (UA) Urine Ketones Urine Blood Urine Nitrite Ur Leukocyte Esterase Urine RBC Urine WBC Ur Squamous Epith Cells Urine Bacteria Hyaline Casts Stool Occult Blood Blood Type Antibody Screen Crossmatch 01/09/23 01/09/23 01/09/23 16:34 16:34 18:36 WBC RBC Hgb Hct MCV MCH MCHC RDW Plt Count MPV Immature Gran % (Auto) Neut % (Auto) Lymph % (Auto) [place] % (Auto) Eos % (Auto) Baso % (Auto) Lymph # (Auto) [place] # (Auto) Eos # (Auto) Baso # (Auto) Abs Immat Gran (auto) Absolute Neuts (auto) Absolute Nucleated RBC Nucleated RBC % (auto) PT INR Sodium Potassium Chloride Carbon Dioxide Anion Gap BUN Creatinine Estim Creat Clear Calc Estimated GFR POC Glucose Random Glucose Calcium Total Bilirubin AST ALT Alkaline Phosphatase Troponin I High Sens 4.6 D Total Protein Albumin Lipase Urine Color Yellow Urine Appearance Clear Urine pH 5.5 Ur Specific [place] >= 1.030 H Urine Protein Negative Urine Glucose (UA) >=1000 H Urine Ketones 15 Urine Blood Negative Urine Nitrite Negative Ur Leukocyte Esterase Negative Urine RBC 0-2 Urine WBC 0-5 Ur Squamous Epith Cells 0-2 Urine Bacteria None Seen Hyaline Casts 3-5 Stool Occult Blood Blood Type B Positive Antibody Screen NEGATIVE Crossmatch See Detail 01/09/23 01/10/23 01/10/23 21:45 00:40 01:56 WBC 10.3 9.1 RBC 3.22 L 3.39 L Hgb 7.4 L 8.3 L Hct 26.0 L 27.5 L MCV 80.7 81.1 MCH 23.0 L 24.5 L MCHC 28.5 L 30.2 L RDW 19.5 H 19.0 H Plt Count 132 L 117 L MPV 9.6 9.7 Immature Gran % (Auto) 0.4 0.4 Neut % (Auto) 60.5 66.3 Lymph % (Auto) 28.8 24.1 [place] % (Auto) 9.7 8.7 Eos % (Auto) 0.0 0.0 Baso % (Auto) 0.6 0.5 Lymph # (Auto) 3.0 2.2 [place] # (Auto) 1.0 0.8 Eos # (Auto) 0.0 0.0 Baso # (Auto) 0.1 0.1 Abs Immat Gran (auto) 0.04 H 0.04 H Absolute Neuts (auto) 6.2 6.0 Absolute Nucleated RBC 0.000 0.000 Nucleated RBC % (auto) 0.0 0.0 PT INR Sodium Potassium Chloride Carbon Dioxide Anion Gap BUN Creatinine Estim Creat Clear Calc Estimated GFR POC Glucose Random Glucose Calcium Total Bilirubin AST ALT Alkaline Phosphatase Troponin I High Sens Total Protein Albumin Lipase Urine Color Urine Appearance Urine pH Ur Specific [place] Urine Protein Urine Glucose (UA) Urine Ketones Urine Blood Urine Nitrite Ur Leukocyte Esterase Urine RBC Urine WBC Ur Squamous Epith Cells Urine Bacteria Hyaline Casts Stool Occult Blood POSITIVE Blood Type Antibody Screen Crossmatch 01/10/23 01/10/23 01/10/23 08:03 09:05 09:05 WBC 8.7 RBC 3.56 L Hgb 9.0 L Hct 29.4 L MCV 82.6 MCH 25.3 L MCHC 30.6 L RDW 18.4 H Plt Count 106 L MPV 9.8 Immature Gran % (Auto) 0.1 Neut % (Auto) 62.2 Lymph % (Auto) 25.9 [place] % (Auto) 11.0 Eos % (Auto) 0.1 Baso % (Auto) 0.7 Lymph # (Auto) 2.3 [place] # (Auto) 1.0 Eos # (Auto) 0.0 Baso # (Auto) 0.1 Abs Immat Gran (auto) 0.01 Absolute Neuts (auto) 5.4 Absolute Nucleated RBC 0.000 Nucleated RBC % (auto) 0.0 PT INR Sodium 138 Potassium 4.3 Chloride 106 Carbon Dioxide 22 Anion Gap 14 BUN 29 H Creatinine 0.69 Estim Creat Clear Calc 95.5 Estimated GFR > 60 POC Glucose 193 H Random Glucose 202 H Calcium 8.7 D Total Bilirubin 2.2 H AST 47 H ALT 31 Alkaline Phosphatase 81 Troponin I High Sens Total Protein 6.1 L Albumin 3.1 L Lipase Urine Color Urine Appearance Urine pH Ur Specific [place] Urine Protein Urine Glucose (UA) Urine Ketones Urine Blood Urine Nitrite Ur Leukocyte Esterase Urine RBC Urine WBC Ur Squamous Epith Cells Urine Bacteria Hyaline Casts Stool Occult Blood Blood Type Antibody Screen Crossmatch 01/10/23 11:17 WBC RBC Hgb Hct MCV MCH MCHC RDW Plt Count MPV Immature Gran % (Auto) Neut % (Auto) Lymph % (Auto) [place] % (Auto) Eos % (Auto) Baso % (Auto) Lymph # (Auto) [place] # (Auto) Eos # (Auto) Baso # (Auto) Abs Immat Gran (auto) Absolute Neuts (auto) Absolute Nucleated RBC Nucleated RBC % (auto) PT INR Sodium Potassium Chloride Carbon Dioxide Anion Gap BUN Creatinine Estim Creat Clear Calc Estimated GFR POC Glucose 189 H Random Glucose Calcium Total Bilirubin AST ALT Alkaline Phosphatase Troponin I High Sens Total Protein Albumin Lipase Urine Color Urine Appearance Urine pH Ur Specific [place] Urine Protein Urine Glucose (UA) Urine Ketones Urine Blood Urine Nitrite Ur Leukocyte Esterase Urine RBC Urine WBC Ur Squamous Epith Cells Urine Bacteria Hyaline Casts Stool Occult Blood Blood Type Antibody Screen Crossmatch Airway Mallampati Class: II TM Dist: >3cm Neck ROM: Full Loose/Missing/Broken Teeth: No Heart: RRR Lungs: CTA Assessment and Plan Assessment Anesthesia Assessment: Anesthesia Plan Discussed and Chart Reviewed Final Anesthetic Review Family History of Problems with Anesthesia: No History of Problems with Anesthesia: No NPO: Yes ASA Class: III and Emergency Final Preanesthetic Review: No Changes in Pt Med Stat, Meds/Allgs Chart Reviewed, Consent Obtained/Reviewed and Anes Risks/Benef Reviewed Patient Risk: High Procedure Risk: Low Anesthetic Plan Anesthetic Plan: GA Disposition: Standard PACU
--- NOTE | 2023-01-10 14:39 | P.EN_ITS ---
Event Note Date of Service: 01/10/23 Event Note: 62 yo female with reported cirrhosis due to fatty liver and EtOH, presented with melena times 24 hours associated with few episode of hematemesis, patient admitted to [facility] with a diagnosis of upper GI bleed. CT pelvic abdomen shows hepatic cirrhosis with portal varices including prominent esophageal varices as well as what appears to be gastric varices with 1 having the appearance of an active bleed into the medial fundus of the stomach Upper GI bleed Diff dx: UGI bleed due to esophageal or gastric varices, PUD, portal gastropathy, gastritis. no recurrent episodes of hematemesis since admission, denies nausea, vomiting or bloody bowel movement. Will continue IV sandostatin, IV ppi ,keep NPO, avoid NSAIDs aspirin and anticoagulation patient evaluated by Dr. Randolph this morning and will be undergoing EGD today. acute on chronic blood loss anemia received 2 units of packed RBC and vitamin K, follow CBC. history of alcohol abuse, no for drawl symptoms, continue folic acid and thiamine follow CIWA. hypothyroidism continue levothyroxine. mood disorder on escitalopram 20 mg daily diabetes NPO Hold anti hyperglycemics. take Trulicity, Jardiance, lispro 15 units t.i.d., metformin 2000 at bedtime, and Lantus 40 units at bedtime. DVT prophylaxis: SCDs, avoid anticoagulation due to gi bleed. Given patient's acute bleed, patient require continue inpatient hospital stay for further management and monitoring Time Spent With Patient Time: Total time managing care of this patient today ____ minutes.
--- NOTE | 2023-01-10 16:22 | PM.OP ---
Brief Operative Note Date of Service: 01/10/23 Pre-op diagnosis: UGI Bleed Post-op diagnosis: other (Portal gastropathy with friability, small hiatal hernia, nonbleeding minimal Grade 1-2 esophageal varix) Procedure: EGD Surgeon: Donovan Randolph Anesthesia: GETA Was an Program Director Group Work used for this Procedure?: No Estimated blood loss (mL): 0 Pathology: none sent Condition: stable Disposition: PACU
--- NOTE | 2023-01-10 16:24 | P.EN_ITS ---
Event Note Date of Service: 01/10/23 Event Note: GI-EGD-Full note dictated-D/W her in detail Findings: 1. Friable portal gastropathy, but without active bleeding nor any old blood in the stomach 2. Nonbleeding Grade 1-2 esophageal varix but without any stigmata of recent nor active bleeding--almost disappeared with insufflation of air 3. Normal duodenum 4. No esphagitis, no ulcer disease, and no Dieulafoy lesions 5. No blood in the UGI tract 6. Small hiatal hernia Rec:Clear liquids today, Continue the IV Sandostatin infusion for another 24 hours, continue IV PPI for 24 hours and then change to po omeprazole 40mg QD, Follow up labs in AM, advance diet 01/11 if stable. 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 F/U with her [facility] MD after discharge. D/W in detail. Please call if she has recurrent problems. Thanks Time Spent With Patient Time: Total time managing care of this patient today ____ minutes.
[2023-01-10 16:59] LABS: Glucose, Whole Blood 200 mg/dL (60-115)
[2023-01-10] MEDS: Insulin Lispro 100 UNIT/ML 3 ML VIAL SUBCUT ×2 (17:05→20:57)
[2023-01-10] MEDS: Sucralfate 1 GM TABLET PO (20:27)
[2023-01-10] MEDS: Atorvastatin Calcium 10 MG TABLET PO (20:28)
[2023-01-10 20:50] LABS: Glucose, Whole Blood 230 mg/dL (60-115)
--- NOTE | 2023-01-10 23:14 | CONS_ITS ---
DATE OF SERVICE: 01/10/2023 REASON FOR CONSULTATION: Upper GI bleeding. HISTORY OF PRESENT ILLNESS: This has been obtained from the patient, her , the nursing staff, and the medical record. The patient is a 62-year-old female with a reported underlying history of cirrhosis in relation to fatty liver and alcohol abuse. She is currently followed by Dr. Iain Adam in [place] and was actually scheduled for an outpatient colonoscopy and upper endoscopy for later this coming week. In any event, she does describe still using alcohol with a couple of drinks yesterday. She describes the onset of melena yesterday at least several times, which was then followed by 1 or 2 episodes of hematemesis. She denies any associated abdominal pain. She denies any similar type bleeding in the past. She does describe a negative colonoscopy at around age 51, but does not recall having had an upper endoscopy in the past. She has never been told of esophageal varices. She does use a daily 81 mg aspirin, but no other aspirin products, NSAIDs, nor blood thinners. Upon arrival in the ER, she did not have any further vomiting, but did have melena on exam. She was found to be anemic with a hemoglobin of 8.5. This dropped to 7.4 later in the overnight period. Interestingly, she has been to the ER twice this year in September and November with finding of anemia with a blood count as low as 5.5 in November. She apparently was transfused in the ER and then discharged. She denies any similar problems with melena, nor hematemesis at that time. Her course overnight has been stable without any bowel movements, vomiting, nor signs of bleeding in general. She denies any abdominal pain. She denies any history of jaundice. She denies any fevers at home, increasing abdominal girth, edema, nor confusion. MEDICATIONS: At home included aspirin 81 mg, atorvastatin, Trulicity, Jardiance, Lexapro, iron, insulin, levothyroxine, metformin, vitamins, and thiamine. Medications here in the hospital include IV Sandostatin, IV pantoprazole, atorvastatin, IV ceftriaxone, Lexapro, insulin, levothyroxine, multivitamin, vitamin K and thiamine. PAST MEDICAL HISTORY: Cirrhosis as above. Diabetes mellitus. Hypothyroidism. Hyperlipidemia. Alcohol abuse. Anemia. Bilateral rotator cuff surgery. She denies a history of [place], stroke, lung disease, nor kidney disease. SOCIAL HISTORY: She is . She is a former smoker. Chronic alcohol abuse. She presently does not work. FAMILY HISTORY: She describes an aunt with alcohol-related cirrhosis, but no other family history of that. REVIEW OF SYSTEMS: CONSTITUTIONAL: Up until yesterday, she reports that she had been feeling well with good appetite. SKIN: No rash, no pruritus. CARDIAC: No chest pain. PULMONARY: No cough or hemoptysis. GI: As above. She also denies any chronic heartburn nor dysphagia. URINARY: No dysuria, no hematuria. NEUROLOGIC: No headache or seizures. PHYSICAL EXAMINATION: GENERAL: The patient is a pleasant, alert, comfortable-appearing female. SKIN: Warm and dry. She is somewhat pale. No obvious spider angiomata. Anicteric sclerae. Moist mucous membranes. NECK: Supple without lymphadenopathy. CHEST: Clear. CARDIAC: Normal S1, S2. ABDOMEN: Soft nondistended normal bowel sounds. Nontender. No palpable mass. EXTREMITIES: Without edema. She is alert and oriented without asterixis. LABORATORY DATA: CBC as above. The most recent CBC from this morning showing a white blood cell count 8.7, hemoglobin 9.0, MCV 83, platelets 106,000. She did receive 2 units of blood overnight. PT was 14.1 with INR 1.2. Normal electrolytes. BUN yesterday was 27 and today is 29. Creatinine 0.7. Albumin 2.2, AST 47, ALT 31, alkaline phosphatase 81, albumin 3.1, lipase 28. She did have a CT scan with IV contrast describing a liver consistent with cirrhosis but no sign of any mass nor biliary obstruction. The pancreas appeared normal. There was splenomegaly. The scan describes both esophageal and gastric varices. The scan also describes what appears to be extravasation in the fundus of the stomach consistent with bleeding. This was felt to represent possible bleeding from a gastric varix. The portal vein appeared patent. There is no description of ascites. IMPRESSION: The patient is a 62-year-old female with underlying cirrhosis in relation to reported fatty liver and alcohol abuse who presents with acute upper GI bleeding. This may very well represent bleeding from a gastric and/or esophageal varix, although the presentation with preceding melena followed by subsequent hematemesis would be somewhat unusual. She may also have bleeding from peptic ulcer disease in relation to chronic aspirin use, portal gastropathy, or a Kristan-Randolph tear. At this point, she appears stable. I would recommend she undergo upper endoscopy later today for further evaluation. Full consent has been obtained from her and her for this, including risks of bleeding, perforation, and aspiration. We did review that depending upon the findings and her clinical course, she may ultimately need transfer to a tertiary center for placement of a TIPS, particularly if she is bleeding from a gastric varix. In the meantime, she will continue on her IV Sandostatin and IV PPI, as well as have close followup of her laboratories. This has all been discussed with the patient and her in detail. They are both comfortable with the plan. Thanks for the consultation. MD GRAY Queen/KATHY / [id number] MTDD
--- NOTE | 2023-01-10 23:39 | OP_ITS ---
DATE OF SERVICE: 01/10/2023 SURGEON: Donovan Randolph MD INDICATIONS: The patient presents for evaluation of upper GI bleeding. Full consent has been obtained from the patient and her for this, including risks of bleeding and perforation. PREOPERATIVE DIAGNOSIS: Upper GI bleeding. POSTOPERATIVE DIAGNOSIS: Upper GI bleeding, friable portal gastropathy, a small hiatal hernia, nonbleeding grade 1-2 esophageal varix. PROCEDURE PERFORMED: Esophagogastroduodenoscopy. ESTIMATED BLOOD LOSS: COMPLICATIONS: ANESTHESIA: General anesthesia. The patient was placed in the supine position. The Olympus video gastroscope was passed in the posterior oropharynx and upper esophagus. The scope was passed slowly to the distal esophagus. The gastroesophageal junction appeared at 37 cm. There was no sign of any esophagitis nor [place] esophagus. The entire esophagus was carefully inspected with insufflation of air. There appeared to be a single nonbleeding grade 1 to 2 esophageal varix that almost disappeared with insufflation of air. There was no sign of any bleeding nor any stigmata of recent nor worrisome changes to suggest potential for bleeding. The scope was entered into the stomach. There was a small hiatal hernia. The scope was advanced to the pylorus and the duodenum was cannulated to the descending portion. The duodenum including the bulb appeared normal other than some somewhat friable mucosa in the duodenal bulb but without ulceration nor mass. There was no fresh blood nor old blood in the duodenum. The scope was withdrawn back in the stomach. The distal portion of the antrum appeared normal with good peristalsis. However, the remainder of the stomach seen both in the forward viewing and retroflexed positions was involved with a very friable congested appearance consistent with that of a portal gastropathy. The proximal stomach was well visualized, and there did not appear to be any varices nor any Dieulafoy lesion. There was no blood nor coffee-grounds material in the stomach. The scope was withdrawn back into the esophagus. Again, there were no suspicious areas in the esophagus to suggest potential for bleeding. The scope was withdrawn from the patient. She tolerated the procedure well and was returned to the recovery area in stable condition. ASSISTANTS: SPECIMENS: IMPRESSION: 1. Portal gastropathy. 2. Small hiatal hernia. 3. Grade 1 to 2 nonbleeding esophageal varix. PLAN: At this point the patient appears stable. I do suspect her bleeding was in relation to the gastropathy and her use of low-dose aspirin. Other things to consider would be that of a Dieulafoy lesion that was not visualized today. 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 She will also be started on Sucralfate 1gm QID, She should avoid all aspirin and NSAID products long-term as well. She will start liquids today and have her diet advanced tomorrow if stable. She will have followup laboratories tomorrow as well. She does have a tank washer in [place], and she will follow up with him after discharge. I will be available while she is here in the hospital for any further questions or problems that arise. Please call me if she has any further bleeding. This has been discussed with her in detail as well. MD GRAY Queen/KATHY / [id number] MTDChika
[2023-01-11 03:22] VITALS: BP 122/60; PULSE 71; RESP 16; TEMP 36.7; O2SAT 95
[2023-01-11] MEDS: Octreotide Acetate 500 MCG in 0.9 % Sodium Chloride 500 ML 50.1 MCG IVCONT ×2 (05:25→15:58)
[2023-01-11 05:32] VITALS: BMI 36.6
[2023-01-11] MEDS: Pantoprazole Sodium 40 MG/10 ML VIAL IVPUSH (05:32)
[2023-01-11] MEDS: Levothyroxine Sodium 200 MCG TABLET PO (05:32)
[2023-01-11 06:03] LABS: Hematocrit 27.2 % (37.0-47.0); Mean Corpuscular HGB Conc 29.4 g/dl (31.0-35.0); Mean Corpuscular Hemoglobin 25.3 pg (27.0-33.0); Mean Corpuscular Volume 86.1 fL (80.0-98.0); Mean Platelet Volume 10.8 fL (9.4-12.3); Platelet Count 80 X10*3/uL (160-400); Red Blood Count 3.16 X10*6/uL (4.20-5.50); Red Cell Distribution Width 19.1 % (11.0-16.0)
[2023-01-11 06:25] LABS: Alanine Aminotransferase 43 U/L (0-31); Albumin Level 2.9 g/dL (3.5-5.0); Alkaline Phosphatase 73 U/L (39-117); Anion Gap 13 (12-20); Aspartate Amino Transferase 102 U/L (5-31); Bilirubin Direct 0.4 mg/dL (0.0-0.5); Bilirubin Total 0.8 mg/dL (0.0-1.0); Blood Urea Nitrogen 16 mg/dL (9-16); Calcium 8.3 mg/dL (8.4-10.2); Carbon Dioxide 22 mmol/L (22-29); Chloride 110 mmol/L (96-108); Creatinine Clr Calc Pharmacy 99.5; Estimated Glomerular Filt Rate > 60; Glucose Fasting 203 mg/dL (60-99); Glucose Random 202 mg/dL (60-115); Potassium 4.3 mmol/L (3.3-5.1); Sodium 141 mmol/L (135-145); Total Protein 5.6 g/dL (6.5-8.0)
[2023-01-11 07:10] VITALS: BP 121/56; PULSE 68; RESP 16; TEMP 36.7; O2SAT 94
[2023-01-11 07:12] LABS: Glucose, Whole Blood 214 mg/dL (60-115)
[2023-01-11] MEDS: Thiamine HCL 100 MG TABLET PO (07:49)
[2023-01-11] MEDS: Escitalopram Oxalate 20 MG TABLET PO (07:49)
[2023-01-11] MEDS: Sucralfate 1 GM TABLET PO ×4 (07:49→20:38)
[2023-01-11] MEDS: Multivitamin TABLET 1 TAB PO (07:49)
[2023-01-11] MEDS: Insulin Lispro 100 UNIT/ML 3 ML VIAL SUBCUT ×4 (07:50→20:37)
[2023-01-11] MEDS: cefTRIAXone sodium 1 GM in 0.9 % Sodium Chloride 50 ML IV (07:50)
[2023-01-11] MEDS: 0.9 % Sodium Chloride Flush 3 ML SYRINGE IVFLUSH ×3 (07:53→23:32)
--- NOTE | 2023-01-11 09:55 | HO.POSTANES ---
Post Anesthesia Evaluation Post Anesthesia Evaluation Date of Service: 01/11/23 Vital Signs: Vital Signs Temp Pulse Resp BP Pulse Ox O2 Del Method 01/11/23 07:10 98.1 F 68 16 121/56 L 94 Room Air 01/11/23 03:22 98.1 F 71 16 122/60 95 Room Air 01/10/23 23:44 98.1 F 73 16 118/56 L 94 Room Air Anesthesia: General Endotracheal-GETA Mental Status: Awake Pain Control: Satisfactory Nausea/Vomiting: None Hydration: Adequate Anesthesia-Related Issues: No Anes. Related Issues
--- NOTE | 2023-01-11 09:57 | MHC.CM.PN ---
Female 62 DX GIB She lives with her . She is independent with all functional mobility. A new HCP has been documented. DP home self care. Patient will arrange for her and or dtr to provide transport home.
--- NOTE | 2023-01-11 10:31 | HO.PM.IMPN ---
Subjective Subjective Date of Service: 01/11/23 Interval History: being followed for upper GI bleed, sitting comfortably tolerated clear liquid diet denied recurrent bout of hematemesis, no bowel movement since yesterday, no nausea, no abdominal pain, no lightheadedness or dizziness has been ambulating to bathroom. Review of Systems All other system reviewed and negative. Physical Exam Vital Signs: Vital Signs: Last Vital Signs Temp 98.1 F 01/11/23 07:10 Pulse 68 01/11/23 07:10 Resp 16 01/11/23 07:10 BP 121/56 L 01/11/23 07:10 Pulse Ox 94 01/11/23 07:10 O2 Del Method Room Air 01/11/23 07:10 O2 Flow Rate 2 01/10/23 16:55 BMI result Body Mass Index 36.6 Const: Other: General awake alert x3, resting comfortably, in no acute distress. Neck supple no JVD. CVS regular rate rhythm, Respiratory lungs clear to auscultation, no respiratory distress, no wheeze, no rhonchi. Gastrointestinal abdomen soft, nontender, bowel sounds audible, no guarding , no rigidity. Extremities no edema. Neuro nonfocal Skin no rash psych appropriate affect Objective Data Active Medications Acetaminophen (Acetaminophen Supp 650 Mg Supp.Rect) 650 mg DC Q6H PRN PRN Reason: Pain, Mild (Pain Scale 1-3) Atorvastatin Calcium (Atorvastatin Calcium 10 Mg Tablet) 10 mg PO BEDTIME [facility] Last Admin: 01/10/23 20:28 Dose: 10 mg Documented By: ORAL Dextrose (Dextrose 50 % 25 Gm/50 Ml Syringe) 25 gm IVPUSH Q15M PRN; Protocol PRN Reason: per Hypoglycemia Standing Ord. Escitalopram Oxalate (Escitalopram Oxalate 20 Mg Tablet) 20 mg PO DAILY [facility] Last Admin: 01/11/23 07:49 Dose: 20 mg Documented By: BEKASCELZBIETA Glucose (Glucose Gel 15 Gm Gel..Gram.) 15 gm PO Q15M PRN; Protocol PRN Reason: per Hypoglycemia Standing Ord. Octreotide Acetate 500 mcg/ (Sodium Chloride) 501 mls @ 50.1 mls/hr IVCONT .Q10H [facility] Last Admin: 01/11/23 05:25 Dose: 50 mcg/hr, 50.1 mls/hr Documented By: DARA Ceftriaxone Sodium 1 gm/ (Sodium Chloride) 50 mls @ 100 mls/hr IV Q24H [facility] Last Infusion: 01/11/23 08:42 Dose: 0 mls/hr Documented By: GRACIELA Insulin Human Lispro (Insulin Lispro 100 Unit/Ml 3 Ml Vial) 0 unit SUBCUT QIDACHS [facility]; Protocol Last Admin: 01/11/23 07:50 Dose: 4 unit Documented By: GRACIELA Levothyroxine Sodium (Levothyroxine Sodium 200 Mcg Tablet) 200 mcg PO DAILY@0630 [facility] Last Admin: 01/11/23 05:32 Dose: 200 mcg Documented By: DARA Multivitamins/Vitamin C (Multivitamin Tablet) 1 tab PO DAILY [facility] Last Admin: 01/11/23 07:49 Dose: 1 tab Documented By: GRACIELA Ondansetron HCl (Ondansetron Hcl 4 Mg/2 Ml Vial) 4 mg IVPUSH Q8H PRN PRN Reason: Nausea and Vomiting Pantoprazole Sodium (Pantoprazole Sodium 40 Mg/10 Ml Vial) 40 mg IVPUSH BID@0630,1630 [facility] Last Admin: 01/11/23 05:32 Dose: 40 mg Documented By: DARA Sodium Chloride (0.9 % Sodium Chloride Flush 3 Ml Syringe) 3 ml IVFLUSH QSHIFT [facility] Last Admin: 01/11/23 07:53 Dose: 3 ml Documented By: GRACIELA Sucralfate (Sucralfate 1 Gm Tablet) 1 gm PO QIDACHS [facility] Last Admin: 01/11/23 07:49 Dose: 1 gm Documented By: GRACIELA Thiamine HCl (Thiamine Hcl 100 Mg Tablet) 100 mg PO DAILY [facility] Last Admin: 01/11/23 07:49 Dose: 100 mg Documented By: GRACIELA Labs 01/11/23 05:40 01/11/23 05:40 Labs: Laboratory Results - last 24 hr 01/10/23 01/10/23 01/10/23 11:17 16:55 20:46 MCV MCH MCHC RDW Plt Count MPV Absolute Nucleated RBC Nucleated RBC % (auto) Anion Gap Estim Creat Clear Calc Estimated GFR POC Glucose 189 H 200 H 230 H Random Glucose Fasting Glucose Calcium Total Bilirubin Direct Bilirubin AST ALT Alkaline Phosphatase Total Protein Albumin 01/11/23 01/11/23 01/11/23 05:40 05:40 07:08 MCV 86.1 MCH 25.3 L MCHC 29.4 L RDW 19.1 H Plt Count 80 L MPV 10.8 Absolute Nucleated RBC 0.000 Nucleated RBC % (auto) 0.0 Anion Gap 13 Estim Creat Clear Calc 99.5 Estimated GFR > 60 POC Glucose 214 H Random Glucose 202 H Fasting Glucose 203 H Calcium 8.3 L Total Bilirubin 0.8 Direct Bilirubin 0.4 AST 102 H ALT 43 H Alkaline Phosphatase 73 Total Protein 5.6 L Albumin 2.9 L Assessment and Plan (1) Anemia due to GI blood loss: Status: Acute (2) Acute on chronic anemia: Status: Acute Plan 62 yo female with reported cirrhosis due to fatty liver and EtOH, presented with melena times 24 hours associated with few episode of hematemesis, patient admitted to [facility] with a diagnosis of upper GI bleed. CT pelvic abdomen shows hepatic cirrhosis with portal varices including prominent esophageal varices as well as what appears to be gastric varices with 1 having the appearance of an active bleed into the medial fundus of the stomach ? Upper GI bleed ? no recurrent episodes of hematemesis since admission, denies nausea, vomiting or bloody bowel movement. underwent upper endoscopy 01/10 it showed portal gastropathy without active bleeding, nonbleeding grade 1-2 esophageal varix without stigmata of recent no active bleeding, no esophagitis tolerating clear liquid diet will advance to regular diabetic diet ? DC IV sandostatin this afternoon,dc IV ppi , place on Prilosec 40 mg and continue Carafate 1 g q.i.d. as per GI avoid NSAIDs aspirin and anticoagulation ? recommend outpatient follow-up with [facility] after discharge ?acute on chronic blood loss anemia received 2 units of packed RBC and vitamin K, repeat hematocrit stable 27.2 ?history of alcohol abuse, no withdrawl symptoms, continue folic acid and thiamine follow [facility]. ?hypothyroidism continue levothyroxine. ?mood disorder on escitalopram 20 mg daily ?diabetes type 2? blood sugar in 200 range, take Trulicity, Jardiance, lispro 15 units t.i.d., metformin 2000 at bedtime, and Lantus 40 units at bedtime. will continue insulin sliding scale resume Lantus 20 units at bedtime. obesity low-calorie diet recommended. DVT prophylaxis: SCDs, avoid anticoagulation due to gi bleed. Given patient's acute bleed, patient require? continue inpatient hospital stay for further management and monitoring. Time Spent With Patient Time: Total time managing care of this patient today ____ minutes. Quality Stroke Does the patient have a stroke diagnosis?: No VTE Prior VTE?: No VTE Risk Level:: Medical - moderate - high VTE Device Contraindication: N/A - Device Ordered VTE Drug Contraindication: Treatment Not Indicated
[2023-01-11 11:08] VITALS: BP 117/68; PULSE 71; RESP 16; TEMP 36.5; O2SAT 98
[2023-01-11 11:15] LABS: Glucose, Whole Blood 237 mg/dL (60-115)
[2023-01-11 15:12] VITALS: BP 104/51; PULSE 72; RESP 20; TEMP 36.3; O2SAT 96
[2023-01-11 16:03] LABS: Glucose, Whole Blood 323 mg/dL (60-115)
[2023-01-11 18:35] LABS: MANUAL DIFF FLAG NO
[2023-01-11 18:38] LABS: Basophils Percent Auto 0.6 % (0-2); Eosinophils Absolute Auto 0.1 X10*3/uL (0.0-0.4); Eosinophils Percent Auto 1.8 % (0-4); Hematocrit 27.8 % (37.0-47.0); Hemoglobin 8.1 g/dl (12.0-16.0); Imm Gran Abs Auto 0.01 X10*3/uL (0.00-0.03); Imm Gran Pct Auto 0.2 % (0.0-0.4); Lymphocytes Absolute Auto 1.3 X10*3/uL (1.2-4.9); Lymphocytes Percent Auto 26.8 % (20-40); Mean Corpuscular HGB Conc 29.1 g/dl (31.0-35.0); Mean Corpuscular Hemoglobin 24.9 pg (27.0-33.0); Mean Corpuscular Volume 85.5 fL (80.0-98.0); Mean Platelet Volume 10.2 fL (9.4-12.3); Monocytes Absolute Auto 0.5 X10*3/uL (0.1-1.2); Monocytes Percent Auto 10.4 % (2-11); Neutrophils Percent Auto 60.2 % (45-73); Red Blood Count 3.25 X10*6/uL (4.20-5.50); Red Cell Distribution Width 19.2 % (11.0-16.0); White Blood Count 4.9 X10*3/uL (4.8-10.8)
[2023-01-11 18:44] LABS: Platelet Count 71 X10*3/uL (160-400)
[2023-01-11 19:11] VITALS: BP 113/53; PULSE 76; RESP 20; TEMP 37.2; O2SAT 95
[2023-01-11 19:58] LABS: Glucose, Whole Blood 257 mg/dL (60-115)
[2023-01-11] MEDS: Insulin Glargine,Hum.rec.anlog 100 UNIT/ML 10 ML VIAL 20 UNIT SUBCUT (20:37)
[2023-01-11] MEDS: Atorvastatin Calcium 10 MG TABLET PO (20:38)
[2023-01-11 23:27] VITALS: BP 144/55; PULSE 72; RESP 18; TEMP 36.4; O2SAT 95
[2023-01-12] MEDS: Octreotide Acetate 500 MCG in 0.9 % Sodium Chloride 500 ML 50.1 MCG IVCONT (02:12)
[2023-01-12 04:00] VITALS: BP 121/51; PULSE 71; RESP 20; TEMP 36.4; O2SAT 96
[2023-01-12] MEDS: Levothyroxine Sodium 200 MCG TABLET PO (05:30)
[2023-01-12 06:00] VITALS: BMI 36.4
[2023-01-12 06:24] LABS: Hematocrit 27.8 % (37.0-47.0); Hemoglobin 8.3 g/dl (12.0-16.0); Mean Corpuscular HGB Conc 29.9 g/dl (31.0-35.0); Mean Corpuscular Hemoglobin 25.5 pg (27.0-33.0); Mean Corpuscular Volume 85.3 fL (80.0-98.0); Mean Platelet Volume 10.1 fL (9.4-12.3); Red Blood Count 3.26 X10*6/uL (4.20-5.50); Red Cell Distribution Width 19.1 % (11.0-16.0); White Blood Count 4.6 X10*3/uL (4.8-10.8)
[2023-01-12 06:25] LABS: Platelet Count 73 X10*3/uL (160-400)
[2023-01-12] MEDS: Omeprazole 40 MG CAPSULE.DR PO (06:29)
[2023-01-12 07:09] VITALS: BP 126/64; PULSE 69; RESP 16; TEMP 36.8; O2SAT 97
[2023-01-12 07:17] LABS: Glucose, Whole Blood 297 mg/dL (60-115)
[2023-01-12] MEDS: Sucralfate 1 GM TABLET PO (08:14)
[2023-01-12] MEDS: Insulin Lispro 100 UNIT/ML 3 ML VIAL SUBCUT (08:14)
[2023-01-12] MEDS: Escitalopram Oxalate 20 MG TABLET PO (08:14)
[2023-01-12] MEDS: Thiamine HCL 100 MG TABLET PO (08:14)
[2023-01-12] MEDS: Multivitamin TABLET 1 TAB PO (08:14)
[2023-01-12] MEDS: 0.9 % Sodium Chloride Flush 3 ML SYRINGE IVFLUSH (08:15)
--- NOTE | 2023-01-12 08:28 | MHC.CM.PN ---
PT WILL DC HOME TODAY WITH NO SERVICES FAMILY TO TRANSPORT
--- NOTE | 2023-01-12 09:44 | P.DS_ITS ---
DS: Providers Provider Date of Service: 01/12/23 Date of admission: 01/10/23 00:21 Primary care physician: Jesus Tong MD Consults: 01/09/23 23:21 Consult to Gastroenterology Stat Consulting Provider: Donovan Randolph Reason for consultation: GIB DS: Diagnosis Discharge Diagnosis (1) Anemia due to GI blood loss: Status: Acute (2) Acute on chronic anemia: Status: Acute DS: Summary Hospital Course Hospital Course: Date of Service: 01/09/23 Chief Complaint: Hemoptysis 62-year-old female past medical history of diabetes, hypothyroidism, depression, and reports fatty liver disease comes into the hospital with complaints of episode of hemoptysis.? She states that she has been doing well, but had 1 episode of hemoptysis today.? She reports epigastric abdominal pain, but no previous similar episode.? Denies any chest pain, no shortness of breath.? She also noticed black tarry stools today and has had diarrhea for the past 1 year.? She reports no urinary symptoms.? She does report that she drinks 2-3 tall ones on gin and tonic nightly for past 2 yrs. denies hx of withdrwwal While in the ED she also had another 1 episode hemoptysis.? On arrival to the ED patient hemodynamically stable Labs are significant for WBC count of 8.4, hemoglobin of 8.5 with a baseline around 7 in November, hematocrit 30.4, INR of 1.2, BUN of 27, total bili of 1.3, AST of 62, ALT of 40, troponin 4.6, UA negative, stool occult positive CT pelvic abdomen shows hepatic cirrhosis with portal varices including prominent esophageal varices as well as what appears to be gastric varices with 1 having the appearance of an active bleed into the medial fundus of the stomach This was discussed with Gastroenterology, patient started on octreotide, given vitamin K, as well as being transfuse 2 units of PRBC will be admitted for further management pt will be admitted for further management. Hospital course: acute blood loss anemia due to upper GI bleed 62 yo female with reported cirrhosis due to fatty liver and EtOH, presented with melena times 24 hours associated with few episode of hematemesis, patient admitted to [facility] with a diagnosis of upper GI bleed. CT pelvic abdomen shows hepatic cirrhosis with portal varices including prominent esophageal varices as well as what appears to be gastric varices with 1 having the appearance of an active bleed into the medial fundus of the stomach, patient admitted to medical floor treated with IV Sandostatin, IV Protonix kept NPO,noted to have no recurrent episode of hematemesis, had no bloody bowel movement, underwent upper endoscopy 01/10? it showed portal gastropathy without active bleeding, nonbleeding grade 1-2 esophageal varix without stigmata of recent no active bleeding, no esophagitis, since patient remained hemodynamically stable with no recurrent bleed tolerating diet she is being discharged home on Prilosec 40 mg and Carafate 1 g q.i.d. as per GI recommendation she I has been advised to avoid NSAIDs, aspirin and no alcohol, recommend outpatient follow-up with [facility] ? ?history of alcohol abuse, no withdrawl symptoms noted rec commended to abstain from alcohol ?hypothyroidism continue levothyroxine. ?mood disorder on escitalopram 20 mg daily ?diabetes type 2? continue Trulicity, Jardiance, lispro 15 units t.i.d., metformin 2000 at bedtime, and Lantus 40 units at bedtime. ? ?obesity low-calorie diet recommended. Time Spent with Patient Time attestation: Total time managing care of this patient today ____ minutes. Discharge coordination time: Greater than 30 minutes Quality: Safe Use of Opioids Does Pt have an Active Cancer Diagnosis on the Problem List?: No Quality: Stroke Does the patient have a stroke diagnosis?: No Physical Exam Vital Signs: Vital Signs: Last Vital Signs Temp 98.2 F 01/12/23 07:09 Pulse 69 01/12/23 07:09 Resp 16 01/12/23 07:09 BP 126/64 01/12/23 07:09 Pulse Ox 97 01/12/23 07:09 O2 Del Method Room Air 01/12/23 07:09 O2 Flow Rate 2 01/10/23 16:55 BMI result Body Mass Index 36.4 Const: Other: General? awake glo rt x3, resting com fortably, in no ac morongo distress.? Nec k supple no JVD. C VS? regular rate r hythm, Respiratory lungs clear to au scultation, no res piratory distress, no wheeze, no rho nchi. Gastrointest inal abdomen soft, nontender, bowel sounds audible, no guarding , no rig idity. Extremities no? edema. Neuro nonfocal Skin no r joselyn psych appropri ate affect DS: Data Data Completed and Pending Labs on day of discharge: Laboratory Results - last 24 hr 01/11/23 01/11/23 01/11/23 11:07 15:55 18:26 WBC 4.9 RBC 3.25 L Hgb 8.1 L Hct 27.8 L MCV 85.5 MCH 24.9 L MCHC 29.1 L RDW 19.2 H Plt Count 71 L MPV 10.2 Immature Gran % (Auto) 0.2 Neut % (Auto) 60.2 Lymph % (Auto) 26.8 [place] % (Auto) 10.4 Eos % (Auto) 1.8 Baso % (Auto) 0.6 Lymph # (Auto) 1.3 [place] # (Auto) 0.5 Eos # (Auto) 0.1 Baso # (Auto) 0.0 Abs Immat Gran (auto) 0.01 Absolute Neuts (auto) 3.0 Absolute Nucleated RBC 0.000 Nucleated RBC % (auto) 0.0 POC Glucose 237 H 323 H 01/11/23 01/12/23 01/12/23 19:52 05:42 07:07 WBC 4.6 L RBC 3.26 L Hgb 8.3 L Hct 27.8 L MCV 85.3 MCH 25.5 L MCHC 29.9 L RDW 19.1 H Plt Count 73 L MPV 10.1 Immature Gran % (Auto) Neut % (Auto) Lymph % (Auto) [place] % (Auto) Eos % (Auto) Baso % (Auto) Lymph # (Auto) [place] # (Auto) Eos # (Auto) Baso # (Auto) Abs Immat Gran (auto) Absolute Neuts (auto) Absolute Nucleated RBC 0.000 Nucleated RBC % (auto) 0.0 POC Glucose 257 H 297 H Discharge Plan Discharge Anticipated Discharge Date/Time: 01/12/23 08:02 Patient Disposition: Home, Self-Care Discharge Diagnosis: acute on chronic blood-loss anemia upper GI bleed alcohol abuse Referrals: Jesus Tong MD [Primary Care Provider] - 1 Week Discharge Medications: New sucralfate 1 gram Tablet 1 g PO QIDACHS Qty: 120 0RF omeprazole 40 mg capsule,delayed release(DR/EC) 40 mg PO DAILY Qty: 30 0RF Continued thiamine HCl (vitamin B1) [Vitamin B-1] 100 mg tablet 100 mg PO DAILY ferrous sulfate 325 mg (65 mg iron) tablet 325 mg PO DAILY insulin glargine [Lantus Solostar U-100 Insulin] 100 unit/mL (3 mL) insulin pen 40 unit subcut BEDTIME Jardiance 25 mg tablet 25 mg PO DAILY Trulicity 1.5 mg/0.5 mL pen injector 1.5 mg subcut MO atorvastatin 10 mg tablet 10 mg PO BEDTIME metformin 500 mg tablet extended release 24 hr 2,000 mg PO BEDTIME insulin lispro [Humalog KwikPen Insulin] 100 unit/mL insulin pen 15 unit subcut TID escitalopram oxalate 20 mg Tablet 20 mg PO DAILY levothyroxine 200 mcg capsule 200 mcg PO DAILY multivitamin Tablet 1 tab PO DAILY Discontinued aspirin [Adult Low Dose Aspirin] 81 mg tablet,delayed release (DR/EC) 81 mg PO DAILY Discharge Orders: Discharge Order (Routine); Ordered 01/12/23 Ordered By: Nancy Momin Diet: Diabetic diet Activity on Discharge: As tolerated Stand Alone Forms: Patient Portal Discharge page Care Plan Goals: upper GI bleed resolved avoid aspirin, no NSAIDs continue Prilosec 40 mg daily and sucralfate Health Concerns: strongly recommend to abstain from alcohol. Plan of Treatment: follow-up with primary care physician and primary Gastroenterology call for appointment Assessment: as above
== END 2023-01-12 11:24 | disposition home or self-care (01) | DRG 432 ==
LOC: HO.ED 18:18 → HO.EDOVER 01-10 00:36 → HO.IMC 01-10 00:56
PROVIDERS: Internal Medicine; Nurse Practitioner Family; Registered Nurse Emergency; Admitting Provider Internal Medicine; Emergency Provider Emergency Medicine Emergency Medical Services; PCP Internal Medicine; Visit Provider Hospitalist
PROC: 0DJ08ZZ Inspection of Upper Intestinal Tract, Via Natural or Artificial Opening Endoscopic (ICD-10-PCS; principal; 2023-01-10 14:00)
DX: K70.30 Alcoholic cirrhosis of liver without ascites (principal); I85.11 Secondary esophageal varices with bleeding; D62 Acute posthemorrhagic anemia; K76.6 Portal hypertension; E03.9 Hypothyroidism, unspecified; E11.9 Type 2 diabetes mellitus without complications; T39.015A Adverse effect of aspirin, initial encounter; F10.10 Alcohol abuse, uncomplicated; E66.9 Obesity, unspecified; Z68.36 Body mass index [BMI] 36.0-36.9, adult; K46.9 Unspecified abdominal hernia without obstruction or gangrene; K76.0 Fatty (change of) liver, not elsewhere classified; K31.89 Other diseases of stomach and duodenum; Z87.891 Personal history of nicotine dependence; Z79.4 Long term (current) use of insulin; Z79.84 Long term (current) use of oral hypoglycemic drugs; Z79.890 Hormone replacement therapy; Z79.899 Other long term (current) drug therapy
CPT/HCPCS: 36415; 74178; 80048; 80053; 80076; 81001; 82272; 82947; 83690; 84484; 85025; 85027; 85610; 86850; 86900; 86901; 86923; 93005; 99285; J0330; J0696; J2354; J2405; J3010; J3430; P9016; Q9967

== ENCOUNTER → 2023-01-09 16:09 | Outpatient (BNV) | payer OTHER, SELFPAY | PROVIDERS: Admitting Provider Internal Medicine; Emergency Provider Emergency Medicine Emergency Medical Services; PCP Internal Medicine; Visit Provider Internal Medicine Cardiovascular Disease | DX: R11.10 Vomiting, unspecified (principal) | CPT/HCPCS: 93010 ==

== ENCOUNTER → 2023-01-10 00:21 | Outpatient (BNV) | payer OTHER, SELFPAY | PROVIDERS: Admitting Provider Internal Medicine; Emergency Provider Emergency Medicine Emergency Medical Services; PCP Internal Medicine; Visit Provider Internal Medicine | DX: D50.0 Iron deficiency anemia secondary to blood loss (chronic) (principal) | CPT/HCPCS: 99223; 99233; 99239; 99499 ==